=== PATIENT | female | born 1990 | race Caucasian/White ===

== ENCOUNTER 2017-04-29 13:32 | Emergency (ER) | payer MEDICAID ==
[~2017-04-29] VITALS: Ht 162.6 cm; Wt 34.0 kg
[~2017-04-29 13:32] MED LIST: CIPRO 500MG TA500 MG PO; DARVOCET-N 1001 EACH PO; FLAGYL 500MG.500 MG PO; IBUPROFEN400 MG PO; LOMOTIL 2.5MG.2.5 MG PO; NOMEDS; SUBOXONE 8 MG-21 FIL SL; ZOFRAN ODT4 MG PO; ZOFRAN4 MG PO
--- OUTSIDE RECORDS SUMMARY | 2017-04-29 14:01 | External Medical Summary Rpt ---
Author Author , ELIZABETH Rust ELIZABETH Address Unknown Phone [email or web address] Care Team Providers Care Clinical Documentation Spec Name Role Phone A Gen MUNOZ MD PSC, A Unavailable Unavailable Gen MUNOZ MD PSC Kanu Singh MD, Unavailable Unavailable Kanu Singh MD SIAACS, ISAACS Unavailable Unavailable CASE JUS, CASE JUS Unavailable Unavailable WADSWORTH, WADSWORTH Unavailable Unavailable [facility]AD[facility]TH ROSELINE, WADSWORTH Unavailable Unavailable ROSELINE WADSW[facility]TH ROSELINE, WADSWOTRH Unavailable Unavailable [facility] Unavailable Unavailable [place], [facility] Unavailable Unavailable [facility] [place] [place] [place] JR NORRIS Unavailable Unavailable DENAE DALAL Unavailable Unavailable [facility] Unavailable Unavailable [facility] HARPEL ROBINA, HARPEL Unavailable Unavailable [facility] Unavailable Unavailable [facility] Unavailable Unavailable INC, [facility], Unavailable Unavailable [facility] Un[facility] Unavailable [facility] KILPELA, KILPELA Unavailable Unavailable [facility] Unavailable Unavailable [facility], [facility] Unavailable Unavailable [facility], [facility] Unavailable [facility]available [facility] SYED DELATORRE, Unavailable Unavailable RENETTA MENON Unavailable Unavailable [facility] Unavailable Unavailable LAB, [facility] CAROL MEDINA Unavailable Unavailable CISCO STEWART, CISCO Unavailable Unavailable [facility] Unavailable Unavailable OF [place], [facility] [place] Purpose Continuity of Care Document - 11-24-2011 through 2016 Problems Code Diagnosis DOS Provider Status I731 THROMBOANGI 03-30-2017 [facility] ITIS PHYSICIANS OBLITERANS GROUP I998 OTHER 03-30-2017 [facility] DISORDER OF PHYSICIANS GROUP CIRCULATORY SYSTEM N028 RECUR & 03-30-2017 [facility] PERSIST PHYSICIANS HEMATURIA GROUP OTH MORPHOLOG CHANGES Z720 TOBACCO USE 03-30-2017 [facility] PHYSIC[facility]ANS GROUP Z3009 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 03-29-2017 [facility] 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 I739 PERIPHERAL 03-05-2017 [place] [facility] UNSPECIFIED R230 CYANOSIS 03-05-2017 [facility] I493 VENTRICULAR 03-02-2017 [facility] PREMATURE PHYSICIANS DEPOLARIZAT GROUP ION I749 EMBOLISM 03-02-2017 [facility] AND PHYS[facility]IANS THROMBOSIS GROUP OF UNSPECIFIED ARTERY R509 FEVER 02-15-2017 [facility] UNSPECIFIED [facility] INC I779 DISORDER OF 02-03-2017 [facility] ARTERIES [facility] AND INC ARTERIOLES UNSPECIFIED Z08703 PAIN IN 01-25-2017 [place] RIGHT [facility] D59347 PAIN IN 01-25-2017 [place] [facility] W26516 PAIN IN 01-25-2017 [place] [facility] Z681 BODY MASS 01-18-2017 A Gen MUNOZ INDEX BMI PSC 19 OR LESS ADULT U02240 PAIN IN 12-15-2016 [place] RIGHT WRIST [facility]ICAL IM[facility]ING ASS T66442 PAIN IN 12-15-2016 [place] [facility] R110 NAUSEA 12-14-2016 A Gen MUNOZ MD PSC Q69573 UNSPECIFIED 06-23-2016 Carmen MUNOZ MD PSC EPISCLERITI S RIGHT EYE R1011 RIGHT UPPER 06-23-2016 [facility] PAIN HOLDINGS R112 NAUSEA WITH 06-23-2016 [facility] UNSPECIFIED HOLDINGS H6592 UNSPECIFIED 06-01-2016 A Gen MUNOZ MD PSC NONSUPPURAT RONNIE OTITIS MEDIA LT EAR J069 ACUTE UPPER 06-01-2016 A Gen MUNOZ MD PSC RESPIRATORY INFECTION UNSPECIFIED J209 ACUTE 06-01-2016 A Gen MUNOZ BRONCHITIS PSC UNSPECIFIED B1920 UNS VIRAL 09-23-2015 A Gen MUNOZ HEPATITIS C PSC WITHOUT HEPATIC COMA E860 DEHYDRATION 09-23-2015 [facility] INC K5900 CONSTIPATIO 09-23-2015 [facility] N [facility] UNSPECIFIED INC R1110 VOMITING 09-23-2015 [facility] UNSPECIFIED [facility] INC R17 UNSPECIFIED 09-23-2015 A Gen MUNOZ JAUNDICE PSC Z3049 ENCOUNTER 08-20-2015 [facility] FOR [facility] SURVEILLANC GROUP E OTHER CONTRACEPTI VES Z308 ENCOUNTER 08-20-2015 [facility] FOR OTHER PHYSICIANS CONTRACEPTI GROUP VE MANAGEMENT R768 OTH SPEC 08-02-2015 GASTROENTER ABNORMAL OLOGY AND IMMUNOLOGIC HEPATOL AL FIND IN SERUM 305.1 305.1 08-24-[address] [facility] 787.91 787.91 08-24-2013 [facility] DI[facility] V255 INSERTION 09-07-2012 [facility] ROSELINE OF IMPLANTABLE SUBDERMAL CONTRACEPTI VE 650 NORMAL 08-08-2012 [facility] DELIVERY ANESTH OF THE BLUE 38899 OTH&UNS CRD 08-08-2012 [facility] ENTANGL [facility] W/O COMPRS INC COMP L&D DELIV 65395 FIRST-DEGRE 08-08-2012 [facility] E PERINEAL [facility] LACERATION INC WITH DELIVERY V270 OUTCOME OF 08-08-2012 [facility] DELIVERY [facility] SINGLE INC LIVEBORN 65034 THREATENED 08-07-2012 [facility] PREMATURE [facility] LABOR INC ANTEPARTUM 50816 OTHER 08-07-2012 HARPEL ROBINA THREATENED LABOR, ANTEPARTUM 24973 CONDYLOMA 08-02-2012 [facility] ACUMINATUM [facility] INC 95998 POOR 08-02-2012 [facility] GROWTH MGMT MOTH ANTPRTM COND/COMP V222 08-02-2012 [facility] STATE, [facility] INCIDENTAL INC V220 SUPERVISION 07-26-2012 ANA[facility] ROSELINE OF NORMAL FIRST 97798 ABN MAT 05-13-2012 [facility] ROSE[facility] GLUCOSE TOLERANCE COMPL PG CB/PP UNS EOC 7910 PROTEINURIA 05-10-2012 [place] ROSELINE V283 ENCOUNTER 03-31-2012 ANANTH DUKES ROUTINE SCREEN MALFORMATIO N ULTRASONIC 29121 EDEMA OR 01-13-2012 [facility] EXCESSIVE [facility] WEIGHT GAIN INC ANTEPARTUM 71926 OTHER 12-31-2011 [facility] N [place] ANTEPARTUM V221 SUPERVISION 12-23-2011 PATHOLOGY & OF OTHER CYTOLOGY NORMAL LAB V7242 12-23-2011 [facility] EXAMINATION [facility] OR TEST CLINIC OF POSITIVE [place] RESULT V745 SCREENING 12-23-2011 PATHOLOGY & EXAMINATION CYTOLOGY FOR LAB VENEREAL DISEASE I77.1 STRICTURE OF ARTERY Allergies, Adverse Reactions, Alerts Type Drug Allergy Adverse Reaction to Substance Substance Reaction Severity No Known Drug Unknown Unknown Allergies Medications Na ND Rx Da Fi Fi Am Da Di Ph RX Ph St me C No te ll ll ou ys ag ar # ys at rm s nt no ma ic us Or Da si cy ia de te s n re d XA 50 05 06 30 30 00 RI Ac RE 45 -3 -3 .0 00 TE ti LT 80 0- 0- 00 01 ve O 57 20 20 18 AI 20 93 17 17 59 D 0 27 PH MG AR MA TA CY BL ET #3 93 8 HY 13 06 06 90 [address] 10 -0 -3 .0 00 IN ti OC 70 6- 0- 00 00 IC ve OD 01 20 20 43 ON 90 17 17 32 PH -A 5 35 AR CE MA TA CY VA NO PH EN 5- 32 5 AT 60 05 06 30 30 00 RI Ac OR 50 -3 -2 .0 00 TE ti VA 52 0- 3- [address] 67 20 20 18 AI AT 10 17 17 59 D IN 9 28 PH AR 80 MA CY MG #3 TA 93 BL 8 ET CH 00 05 06 53 28 00 RI Ac AN 06 -2 -1 .0 00 TE ti TI 90 3- 6- 00 01 ve X 47 [address] 10 17 17 50 D AR 3 36 PH TI AR NG MA CY MO NT #3 H 93 MAYTE 8 X CL 60 05 06 30 30 00 RI Ac OP 50 -0 -0 .0 00 TE ti ID 50 5- 2- 00 01 ve OG 25 20 20 18 AI RE 30 17 17 27 D L 2 86 PH 75 AR MA MG CY TA #3 BL 93 ET 8 ON 55 04 05 15 25 00 RI Ac DA 11 -1 -0 .0 00 TE ti NS 10 0- 5- 00 01 ve ET 15 20 20 17 AI RO 33 17 17 91 D N 0 09 PH HC AR L MA 4 CY MG #3 TA 93 BL 8 ET SO 00 11 0 No DI 40 -1 UM 97 9- Lo 98 20 ng CH 30 13 er LO 9 RI Ac DE ti ve 0. 9% SO GAGE TI ON Sa 63 11 0 No li 80 -1 ne 70 9- Lo 10 20 ng Fl 07 13 er us 5 h Ac 10 ti ML ve Sy ri ng e ON 00 11 0 No DA 64 -1 NS 16 9- Lo ET 08 20 ng RO 02 13 er N 5 HC Ac L ti 4 ve MG /2 ML AL TN 00 11 0 No OM 64 -1 ET 11 9- Lo LINO 49 20 ng ZI 53 13 er NE 5 Ac 25 ti ve MG /M L AM PU L Vital Signs 08-24-2013 15:55 Name Value Interpretat Reference Comment ion Range Body 98.5 [degF] Temperature BP 64 mm[Hg] Diastolic BP Systolic 101 mm[Hg] Heart 78 /min Rate/Pulse O2% 100 % Respiratory 16 /min Rate 08-22-2013 14:40 Name Value Interpretat Reference Comment ion Range BP 45 mm[Hg] Diastolic BP Systolic 98 mm[Hg] Heart 74 /min Rate/Pulse O2% 99 % Respiratory 18 /min Rate 08-22-2013 13:12 Name Value Interpretat Reference Comment ion Range BP 57 mm[Hg] Diastolic BP Systolic 86 mm[Hg] Heart 77 /min Rate/Pulse O2% 99 % Respiratory 20 /min Rate Results Labs Lab Lab Date Result Refere Interp Status Commen Order Detail nces retati t Range on Bacteria XXX Anaerobe+Aerobe Cult (04-20-2017 10:06) Bacteri 04-20- NGB3 NO complet a XXX 017 GROWTH ed Anaerob 10:06 DAY 3. e+Aerob L e Cult ESR Bld Qn (04-20-2017 10:06) ESR Bld 04-20-2 17 0-20 complet Qn 017 mm/hr ed 10:06 CRP SerPl-mCnc (04-20-2017 10:06) CRP 04-20-2 0.7 0-0.9 complet SerPl-m 017 mg/dL ed Cnc 10:06 COMPREHENSIVE METABOLIC PANEL (08-22-2013 13:35) Glucose 76 74-106 complet 013 mg/dL ed Bld-mCn 13:35 c BUN 13 7-18 complet Bld-mCn 013 mg/dL ed c 13:35 Creat 08-22- 0.7 0.6-1.0 complet SerPl-m 013 mg/dL ed Cnc 13:35 ESTIMAT 08-22- 89 50-200 complet ED 013 ML/MIN ed CREATIN 13:35 INE CLEARAN CE GFR 08-22- 104 59- complet (ESTIMA 013 ML/MIN ed OUMAR) 13:35 Sodium 08-22- 141 136-145 complet SerPl-s 013 mmoL/L ed Cnc 13:35 Potassi 4.0 3.5-5.1 complet um 013 mmoL/L ed SerPl-s 13:35 Cnc Chlorid 08-22- 108 98-107 complet e 013 mmoL/L ed SerPl-s 13:35 Cnc CO2 08-22- 25 21.0-32 complet SerPl-s 013 mmoL/L .0 ed Cnc 13:35 Calcium 08-22- 7.6 8.5-10. complet 013 mg/dL 1 ed SerPl-m 13:35 Cnc Prot 08-22-2 5.6 6.4-8.2 complet SerPl-m 013 gm/dL ed Cnc 13:35 Albumin 08-22-2 2.8 3.4-5.0 complet 013 gm/dL ed SerPl-m 13:35 Cnc Globuli 08-22- 2.8 1.3-3.2 complet n 013 gm/dL ed Ser-mCn 13:35 c Albumin 1.0 UNK 1.1-1.8 complet /Glob 013 ed SerPl-m 13:35 Rto Bilirub 08-22- 0.2 0.2-1.0 complet 013 mg/dL ed SerPl-m 13:35 Cnc AST 08-22- 28 U/L 15-37 complet SerPl-c 013 ed Cnc 13:35 ALT 08-22- 33 U/L 30-65 complet SerPl-c 013 ed Cnc 13:35 ALP 08-22- 77 U/L 50-136 complet SerPl-c 013 ed Cnc 13:35 Amylase SerPl-cCnc (08-22-2013 13:35) Amylase 08-22-2 33 U/L 25-115 complet 013 ed SerPl-c 13:35 Cnc LIPASE (08-22-2013 13:35) LIPASE 08-22- 91 U/L 73-393 complet 013 ed 13:35 CBC with AUTO DIFF (08-22-2013 13:35) WBC # 08-22-2 6.4 4.8-10. complet Bld 013 K/MM3 8 ed Auto 13:35 RBC # 08-22-2 4.39 4.2-5.4 complet Bld 013 M/mm3 ed Auto 13:35 Hgb 08-22- 13.3 12.2-16 complet Bld-mCn 013 g/dL .2 ed c 13:35 Hct Fr 08-22-2 39.3 % 37.0-47 complet Bld 013 .0 ed 13:35 MCV RBC 08-22-2 89.5 fl 82.2-97 complet 013 .8 ed 13:35 MCH RBC 08-22-2 30.3 pg 27-31.2 complet Qn 013 ed Auto 13:35 MEAN 08-22-2 33.9 31.8-35 complet CORPUSC 013 g/dl .4 ed ULAR 13:35 HGB CONC RDW RBC 08-22-2 14.3 % 11.5-17 complet Auto 013 .5 ed 13:35 Platele 08-22-2 179 142-424 complet t Bld 013 K/mm3 ed Ql 13:35 Manual MEAN 08-22-2 8.5 fl 7.4-10. complet PLATELE 013 4 ed T 13:35 VOLUME Granulo 08-22-2 65.2 % 37.0-80 complet cytes 013 .0 ed Fr Bld 13:35 Auto LYMPH % -19-2 23.6 % 10-50.0 complet 013 ed 13:35 Monocyt -19-2 6.7 % 1.7-9.3 complet es Fr 013 ed Bld 13:35 Auto Eosinop 11-19-2 4.0 % 0.1-12. complet hil Fr 013 0 ed Bld 13:35 Auto Basophi 11-19-2 0.5 % 0.1-2.0 complet ls Fr 013 ed Bld 13:35 Auto Granulo 11-19-2 4.2 1.8-7.8 complet cytes # 013 K/mm3 ed Bld 13:35 Auto Lymphoc 11-19-2 1.5 0.7-4.5 complet ytes Fr 013 K/mm3 ed Bld 13:35 Auto Monocyt 11-19-2 0.4 0.1-1.0 complet es # 013 K/mm3 ed Bld 13:35 Auto Eosinop 11-19-2 0.3 0.0-0.4 complet hil # 013 K/mm3 ed Bld 13:35 Auto Basophi 11-19-2 0.0 0-0.2 complet ls # 013 K/MM3 ed Bld 13:35 Auto B-HCG Ur Ql (08-22-2013 12:45) B-HCG -19-2 NEGATIV NEG complet Ur Ql 013 E ed 12:45 URINALYSIS/COMPLETE (08-22-2013 12:45) URINE 11-19-2 YELLOW YELLOW complet COLOR 013 ed 12:45 URINE 11-19-2 CLEAR CLEAR complet APPEARA 013 ed NCE 12:45 URINE 11-19-2 NEGATIV NEG complet GLUCOSE 013 E ed - 12:45 DIPSTIC K URINE 11-19-2 1+ NEG complet BILIRUB 013 ed IN - 12:45 DIPSTIC K URINE 11-19-2 1+ NEG complet KETONE 013 mg/dL ed 12:45 URINE 11-19-2 1.020 1.005-1 complet SPECIFI 013 UNK .030 ed C 12:45 GRAVITY URINE 11-19-2 NEGATIV NEG complet BLOOD 013 E ed 12:45 URINE 11-19-2 6.0 UNK 5.0-8.5 complet PH 013 ed 12:45 URINE 11-19-2 TRACE NEG complet PROTEIN 013 mg/dL ed - 12:45 DIPSTIC K URINE 11-19-2 0.2 NEG complet UROBILI 013 E.U./dL ed NOGEN - 12:45 DIPSTIC K URINE 11-19-2 NEGATIV NEG complet NITRATE 013 E ed - 12:45 DIPSTIC K URINE 11-19-2 NEGATIV NEG complet LEUK 013 E ed ESTERAS 12:45 E URINE 11-19-2 3-5 0 complet RBC 013 rbc/hpf ed 12:45 URINE 11-19-2 3-5 O complet WBC 013 wbc/hpf ed 12:45 URINE 11-19-2 5-10 0-5 complet SQUAMOU 013 #/hpf ed S CELLS 12:45 CHLAMYDIA AND GONORRHEA TESTING (11-24-2011 16:14) Chlamyd NEGATIV complet ia 012 E ed trachom 16:14 atis rRNA [Presen ce] in Unspeci fied specime n by Probe & target amplifi cation method Neisser NEGATIV complet ia 012 E ed gonorrh 16:14 oeae rRNA [Presen ce] in Unspeci fied specime n by Probe & target amplifi cation method CHLAMYDIA AND GONORRHEA TESTING (11-24-2011 16:14) COLLECT NA complet OR 012 ed 16:14 ETHNICI WHITE, complet TY 012 NON-HIS ed 16:14 PANIC KIT 02-01-12 complet EXPIRAT 012 ed ION 16:14 DATE SYMPTOM NO complet S 012 ed 16:14 REASON INITIAL complet FOR 012 FAMILY ed REQUEST 16:14 PLANNIN G VISIT SPECIME URINE complet N 012 ed SOURCE 16:14 PREGNAN NO complet T 012 ed 16:14 CHART NA complet NUMBER 012 ed 16:14 Chlamyd Pending complet ia 012 ed trachom 16:14 atis rRNA [Presen ce] in Unspeci fied specime n by Probe & target amplifi cation method Neisser Pending complet ia 012 ed gonorrh 16:14 oeae rRNA [Presen ce] in Unspeci fied specime n by Probe & target amplifi cation method Procedures Procedure DOS Code Location Performer Comment ECG 93826 [facility] ROUTINE 7 PHYSICIAN ECG S GROUP W/LEAST 12 LDS I&R ONLY ECG 19161 [facility] ROUTINE 7 PHYSICIAN ECG S GROUP W/LEAST 12 LDS I&R ONLY ECG 69437 [facility] ROUTINE 7 [facility] ECG INC INC W/LEAST 12 LDS TRCG ONLY W/O I&R UNCLASSIF J3490 [facility] IED DRUGS 7 [facility] INC INC CT THORAX 90447 [place] [facility] 7 MEDICAL W/[place] [address] [facility] ANGIOGRAP 7 [facility] HY CHEST INC INC W/CONTRAS T/NONCONT RAST ECG 89427 [facility] ROUTINE 7 [facility] ECG INC INC W/LEAST 12 LDS TRCG ONLY W/O I&R ECG 80491 [facility] ROUTINE 7 PHYSICIAN ECG S GROUP W/LEAST 12 LDS I&R ONLY CULTURE 75966 [facility] BACTERIAL 7 [facility] BLOOD INC INC AEROBIC W/ID ISOLATES UNCLASSIF J3490 [facility] IED DRUGS 7 [facility] [place] [address] [facility] ANGIOGRAP 7 [facility] HY UPPER INC INC EXTREMITY COMPREHEN 42564 [facility] SIVE 7 [facility] METABOLIC INC INC PANEL PROTHROMB 08778 [facility] IN TIME 7 [facility] INC INC DUP-SCAN 20460 [facility] XTR VEINS 7 [facility] INC INC UNILATERA L/LIMITED STUDY NON-INVAS 91297 [facility] RONNIE 7 [facility] PHYSIOLOG INC INC IC STUDY EXTREMITY 3 LEVLS C-REACTIV 33349 [facility] E PROTEIN 7 [place], INC. INC. COLLECTIO 12482 A C RENETTA N VENOUS 7 ALEXANDER TOLBERT BLOOD PSC VENIPUNCT URE SEDIMENTA 43039 [facility] TION RATE 7 [place], RBC INC. INC. AUTOMATED ANTINUCLE 72697 [facility] AR 7 [place], ANTIBODIE INC. INC. S JAMARI RADEX 51768 [facility] HAND 7 [facility] MINIMUM 3 INC INC VIEWS RADEX 28669 [facility] WRIST 7 [facility] COMPLETE INC INC MINIMUM 3 VIEWS HPYLORI 58461 [facility] BREATH 6 [facility] ANAL HOLDINGS HOLDINGS UREASE ACT NON-RADAC T ISTOPE URINLS 57768 A C DENAE DIP 5 ALEXANDER HARO STICK/TAB PSC LET REAGNT NON-AUTO MICRSCPY INJECTION J2405 [facility] 5 [facility] ONDANSETR INC INC ON HCL PER 1 MG COMPREHEN 57917 [facility] SIVE 5 [facility] [place] [address] [facility] LIPASE 5 [facility] INC INC BLOOD 11595 A C DENAE COUNT 5 ALEXANDER HARO COMPLETE PSC AUTO&[place] [address] Y[facility]ELY Y[facility]ELY INFUSION 5 [facility] THERAPY/P INC INC ROPHYLAXI S /DX 1ST TO 1 HR THERAPEUT 89969 [facility] IC 5 [facility] INJECTION INC INC IV PUSH EACH NEW DRUG INSJ 44559 [facility] ANANTH NON-BIODE 5 PHYSICIAN ROSELINE GRADABLE S GROUP DRUG DELIVERY IMPLANT INSJ 28093 [facility] [place] NON-BIODE 2 ROSELINE ROSELINE GRADABLE DRUG DELIVERY IMPLANT ETONOGEST J7307 [facility] [place] REL 2 ROSELINE ROSELINE CNTRACPT IMPL SYS INCL IMPL & SPL URINE 95682 [facility] [place] 2 ROSELINE ROSELINE TEST VISUAL COLOR CMPRSN METHS REPAIR OF 7569 [facility] OTHER 2 [facility] CURRENT INC INC OBSTETRIC LACERATIO N VAGINAL 25056 ANANTH [place] DELIVERY 2 ROSELINE ROSELINE ONLY W/POSTPAR [facility]ERINE CARE NEURAXIAL 15053 [facility] LABOR 2 ANESTH TERRY ANALG/ANE OF THE S PLND BLUE VAGINAL DELIVERY 09766 [facility] NONSTRESS 2 [facility] TEST INC INC 20633 [facility] NONSTRESS 2 [facility] TEST INC INC DOPPLER 08827 [place] VELOCIMET 2 ROSELINE ROSELINE RY UMBILICAL ARTERY US PREG 35483 [place] UTERUS 2 ROSELINE ROSELINE REAL TIME F/U TRNSABDL PER FETUS 49142 [place] BIOPHYSIC 2 ROSELINE ROSELINE AL PROFILE W/O NON-STRES S TESTING CUL BACT 88924 COMBINED COMBINED XCPT 2 PHYSICIAN PHYSICIAN URINE S LA S LA BLOOD/STO OL AEROBIC ISOL US PREG 06274 [place] UTERUS 2 ROSELINE ROSELINE REAL TIME F/U TRNSABDL PER FETUS DOPPLER 01815 [place] VELOCIMET 2 ROSELINE ROSELINE RY UMBILICAL ARTERY 27883 [place] BIOPHYSIC 2 ROSELINE ROSELINE AL PROFILE W/O NON-STRES S TESTING 56702 [place] BIOPHYSIC 2 ROSELINE ROSELINE AL PROFILE W/O NON-STRES S TESTING DOPPLER 39937 [place] VELOCIMET 2 ROSELINE ROSELINE RY UMBILICAL ARTERY US PREG 83286 [facility] [place] UTERUS 2 ROSELINE ROSELINE REAL TIME F/U TRNSABDL PER FETUS GLUCOSE 41463 [facility] [place] TOLERANCE 2 ROSELINE ROSELINE TEST GTT 3 [place]IMENS US PREG 68078 [facility] [place] UTERUS 2 ROSELINE ROSELINE AFTER 1ST TRIMEST GESTATION ALPHA-FET 86216 YARELYGINNY [facility] OPROTEIN 2 [facility] INC INC GONADOTRO 76030 YARELY YARELY PIN 2 [facility] CHORIONIC [place] [address] YARELY YARELY ESTRIOL 2 [facility] INC INC MEDICAL 15010 [facility] NUTRITION 2 [facility] INC INC ASSMT&IVN TJ INDIV EACH 15 [place] US PREG 53736 [facility] UTERUS 2 HEALTH ROSELINE REAL TIME CLINIC OF W/IMAGE [place] DCMTN TRANSVAG IADNA 30980 PATHOLOGY SYED CHLAMYDIA 2 & NANDINI CYTOLOGY TRACHOMAT LAB IS AMPLIFIED PROBE TQ CYTP 83018 PATHOLOGY SYED CERVICAL/ 2 & NANDINI VAGINAL CYTOLOGY REQ LAB INTERP PHYSICIAN CYTP C/V 86403 PATHOLOGY SYED AUTO THIN 2 & NANDINI LYR CYTOLOGY PREPJ SCR LAB MNL RESCR PHYS IADNA 41329 PATHOLOGY SYED NEISSERIA 2 & NANDINI CYTOLOGY GONORRHOE LAB AE AMPLIFIED PROBE TQ URINE 53152 [facility] 2 [facility] CENTER VISUAL COLOR CMPRSN METHS Encounters Encounter Start End Date Code Location Performer Type Date OFFICE 14467 [facility] CAROL OUTPATIEN 7 7 PHYSICIAN T VISIT S GROUP 25 MINUTES OFFICE 08487 [facility] [place] OUTPATIEN 7 7 PHYSICIAN T VISIT S GROUP 15 MINUTES HOSPITAL YARELY - 7 7 [facility] OFFICE 52838 [facility] CAROL OUTPATIEN 7 7 PHYSICIAN T VISIT S GROUP 40 MINUTES HOSPITAL YARELY - 7 7 [facility] HOSPITAL YARELY - 7 7 [facility] OUTPATIEN INC T OFFICE 68794 [facility] CAROL OUTPATIEN 7 7 PHYSICIAN T NEW 60 S GROUP MINUTES HOSPITAL YARELY - 7 7 [facility] OUTPATIEN INC T HOSPITAL YARELY - 7 7 [facility] OUTPATIEN INC T EMERGENCY 31280 ADDI NORRIS 7 7 PHYSICIAN DEPARTMEN S, PLLC T VISIT HIGH/URGE NT SEVERITY HOSPITAL YARELY - 7 7 [facility] OUTPATIEN INC T EMERGENCY 61466 YARELY 7 7 [facility] T VISIT LOW/MODER SEVERITY HOSPITAL YARELY - 7 7 [facility] OUTPATIEN INC T OFFICE 91297 A C [place] OUTPATIEN 7 7 [facility] [place] T VISIT PSC 15 MINUTES HOSPITAL YARELY - 7 7 [facility] OUTPATIEN [facility] T OFFICE 67499 A C OMAR OUTPATINICHELLE 7 7 [facility] [place] T VISIT PSC 15 MINUTES OFFICE 62881 A C DENAE OUTPATIEN 6 6 ALEX[facility] HARO T VISIT PSC 15 MINUTES OFFICE 29609 A C DENAE OUTPATIEN 6 6 A[facility] HARO T VISIT PSC 15 MINUTES HOSPITAL YARELY - 5 5 [facility] OUTPATIEN INC T EMERGENCY 72046 YARELY 5 5 [facility] DEPARTMEN INC T VISIT LOW/MODER SEVERITY OFFICE 79583 A Gen PHILIPPE OUTPATIEN 5 5 ALEXANDER HARO T VISIT PSC 15 MINUTES OFFICE 50688 GASTROENT CASE JUS OUTPATINICHELLE 5 5 EROLOGY T VISIT AND 25 HEPATOL MINUTES Emergency RICK Singh MD (ER) 3 15:34 3 16:00 [facility] Emergency RICK Singh MD (ER) 3 13:02 3 14:42 [facility] YARELY - 2 2 [facility] INPATIENT [facility] Y[facility]ELY - 2 2 [facility] OUT[facility]IEN [facility] YARELY - 2 2 [facility] INC T OFFICE 85467 [facility] 2 2 ROSELINE ROSELINE T VISIT 15 MINUTES OFFICE 72338 [facility] OUTPATIEN 2 2 ROSELINE ROSELINE T VISIT 15 MINUTES OFFICE 05157 [facility] OUTPATIEN 2 2 ROSELINE ROSELINE T VISIT 15 MINUTES OFFICE 27526 [facility] OUTPATIEN 2 2 ROSELINE ROSELINE T VISIT 15 MINUTES OFFICE 08927 [facility] OUTPATIEN 2 2 ROSELINE ROSELINE T VISIT 5 MINUTES OFFICE 30228 [facility] OUTPATIEN 2 2 ROSELINE ROSELINE T VISIT 15 MINUTES OFFICE 11246 [facility] OUTPATIEN 2 2 ROSELINE ROSELINE T VISIT 15 MINUTES HOSPITAL YARELY - 2 2 [facility] OUTPATIEN [facility] T OFFICE 96035 [facility] OUTPATIEN 2 2 ROSELINE ROSELINE T VISIT 15 MINUTES OFFICE 75668 [facility] OUTPATIEN 2 2 ROSELINE ROSELINE T VISIT 15 MINUTES OFFICE 80600 [facility] OUTPATIEN 2 2 ROSELINE ROSELINE T VISIT 15 MINUTES HOSPITAL [facility]ELY - 2 2 [facility] INC T OFFICE 24249 [facility] 2 2 [facility] T [facility] CLIN[facility] OF MINUTES [facility] OFFICE 56660 [facility] [place] OUT[facility]IEN 2 2 [facility] CENTER 15 MINUTES
--- OUTSIDE RECORDS SUMMARY | 2017-04-29 14:01 | External Medical Summary Rpt ---
Author Author , ELIZABETH Rust ELIZABETH Address Unknown Phone [email or web address] Care Team Providers Care Ventilation Worker Name Role Phone A Gen MUNOZ MD PSC, A Unavailable Unavailable Gen MUNOZ MD PSC Kanu Singh MD, Unavailable Unavailable Kanu Singh MD ISAACS, ISAACS Unavailable Unavailable CASE JUS, CASE JUS Unavailable Unavailable WADSWORTH, WADSWORTH Unavailable Unavailable [facility] ROSELINE, WADSWORTH Unavailable Unavailable ROSELINE [facility]AD[facility]TH ROSELINE, WADSWORTH Unavailable Unavailable [facility] Un[facility] Unavailable [place], [facility] Unavailable Unavailable [facility] JR NORRIS Unavailable Unavailable DENAE DALAL Unavailable Unavailable [facility] Unavailable Unavailable [facility] HARPEL ROBINA, HARPEL Unavailable Unavailable [facility] Unavailable Unavailable [facility] Unavailable Unavailable INC, [facility], Unavailable Unavailable [facility] Unavailable Unavailable [facility], [facility] KILPELA, KILPELA Unavailable Unavailable [facility] Unavailable Unavailable [facility], [facility] Unavailable Unavailable [facility], [facility] Unavailable Unavailable [facility], Unavailable Unavailable RENETTA MENON Unavailable Unavailable [facility] Unavailable Unavailable LAB[facility] CAROL MEDINA Unavailable Unavailable CISCO STEWART, CISCO Unavailable Unavailable [facility] Unavailable Unavailable OF [place], [facility] [place] Purpose Continuity of Care Document - 11-24-2011 through 2016 Problems Code Diagnosis DOS Provider Status I731 THROMBOANGI 03-30-2017 [facility] ITIS PHYSICIANS OBLITERANS GROUP I998 OTHER 03-30-2017 [facility] DISORDER OF PHYSICIANS GROUP CIRCULATORY SYSTEM N028 RECUR & 03-30-2017 [facility] PERSIST PHYSICIANS HEMATURIA GROUP OTH MORPHOLOG CHANGES Z720 TOBACCO USE 03-30-2017 [facility] PHYSICIANS GROUP Z3009 ENCOUNTER 03-29-2017 [facility] OT GENERAL 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 I739 PERIPHERAL 03-05-2017 [place] [facility] UNSPECIFIED R230 CYANOSIS 03-05-2017 [facility] I493 VENTRICULAR 03-02-2017 [facility] PREMATURE PHYSICIANS DEPOLARIZAT GROUP ION I749 EMBOLISM 03-02-2017 [facility] AND PHYSICIANS THROMBOSIS GROUP OF UNSPECIFIED ARTERY R509 FEVER 02-15-2017 [facility] UNSPECIFIED [facility] INC I779 DISORDER OF 02-03-2017 [facility] ARTERIES [facility] AND INC ARTERIOLES UNSPECIFIED G25526 PAIN IN 01-25-2017 [place] [facility] E66710 PAIN IN 01-25-2017 [place] [facility] Z23896 PAIN IN 01-25-2017 [place] [facility] Z681 BODY MASS 01-18-2017 A Gen MUNOZ INDEX BMI PSC 19 OR LESS ADULT H88609 PAIN IN 12-15-2016 [place] [facility] W[facility]ST [facility] G97893 PAIN IN 12-15-2016 [place] [facility] R110 NAUSEA 12-14-2016 A Gen MUNOZ MD PSC V67813 UNSPECIFIED 06-23-2016 Carmen MUNOZ MD PSC EPISCLERITI [...] PSC WITHOUT HEPATIC COMA E860 DEHYDRATION 09-23-2015 [facility] INC K5900 CONSTIPATIO 09-23-2015 [facility] N [facility] UNSPECIFIED INC R1110 VOMITING 09-23-2015 [facility] UNSPECIFIED [facility] INC R17 UNSPECIFIED 09-23-2015 A Gen MUNOZ JAUNDICE PSC Z3049 ENCOUNTER 08-20-2015 [facility] FOR PHYSICIANS SURVEILLANC GROUP E OTHER CONTRACEPTI VES Z308 ENCOUNTER 08-20-2015 [facility] FOR OTHER PHYSICIANS CONTRACEPTI GROUP VE MANAGEMENT R768 OTH SPEC 08-02-2015 GASTROENTER ABNORMAL OLOGY AND IMMUNOLOGIC HEPATOL AL FIND IN SERUM 305.1 305.1 08-24-2013 [facility] TOBACCO USE [facility] 787.91 787.91 08-24-2013 [facility] DIARRHEA [facility] V255 INSERTION 09-07-2012 A[facility] ROSE[place] OF IMPLANTABLE SUBDERMAL CONTRACEPTI VE 650 NORMAL 08-08-2012 COMM[facility]ITY DELIVERY ANESTH OF THE BLUE 57195 OTH&UNS CRD 08-08-2012 [facility] ENTANGL [facility] W/O COMPRS INC COMP L&D DELIV 41860 FIRST-DEGRE 08-08-2012 [facility] E PERINEAL [facility] LACERATION INC WITH DELIVERY V270 OUTCOME OF 08-08-2012 [facility] DELIVERY [facility] SINGLE INC LIVEBORN 08310 THREATENED 08-07-2012 [facility] PREMATURE [facility] LABOR INC ANTEPARTUM 59082 OTHER 08-07-2012 HARPEL ROBINA THREATENED LABOR, ANTEPARTUM 86209 CONDYLOMA 08-02-2012 [facility] ACUMINATUM [facility] INC 58601 POOR 08-02-2012 ANA[facility]TH ROSELINE GROWTH MGMT MOTH ANTPRTM COND/COMP V222 08-02-2012 [facility] STATE, [facility] INCIDENTAL INC V220 SUPERVISION 07-26-2012 ANANTH ROSELINE OF NORMAL FIRST 63348 ABN MAT 05-13-2012 ANANTH ROSELINE GLUCOSE TOLERANCE COMPL PG CB/PP UNS EOC 7910 PROTEINURIA 05-10-2012 [facility] ROSELINE V283 ENCOUNTER 03-31-2012 ANANTH DUKES ROUTINE SCREEN MALFORMATIO N ULTRASONIC 47041 EDEMA OR 01-13-2012 [facility] EXCESSIVE [facility] WEIGHT GAIN INC ANTEPARTUM 17560 OTHER 12-31-2011 [facility] [...] 5 35 AR CE MA TA CY NC NO PH EN 5- 32 5 AT [...] ti 4 ve MG /2 ML AL VA 00 11 0 No OM 64 -1 [...] Procedure DOS Code Location Performer Comment ECG 43870 [facility] ROUTINE 7 PHYSICIAN ECG S GROUP W/LEAST 12 LDS I&R ONLY ECG 39782 [facility] ROUTINE 7 PHYSICIAN ECG S GROUP W/LEAST 12 LDS I&R ONLY ECG 21984 [facility] ROUTINE 7 [facility] ECG INC INC W/LEAST 12 LDS TRCG ONLY W/O I&R UNCLASSIF J3490 [facility] IED DRUGS 7 MEM [facility] INC [place] THORAX 00233 [place] [facility] 7 MEDICAL W/[place] [address] [facility] ANGIOGRAP 7 [facility] HY CHEST INC INC W/CONTRAS T/NONCONT RAST ECG 28073 [facility] ROUTINE 7 [facility] ECG INC INC W/LEAST 12 LDS TRCG ONLY W/O I&R ECG 29583 [facility] ROUTINE 7 PHYSICIAN ECG S GROUP W/LEAST 12 LDS I&R ONLY CULTURE 58426 [facility] BACTERIAL 7 [facility] BLOOD INC INC AEROBIC W/ID ISOLATES UNCLASSIF J3490 Y[facility] IED DRUGS 7 [facility] [address] YAERLY [facility] ANGIOGRAP 7 [facility] HY UPPER INC INC EXTREMITY COMPREHEN 84562 [facility] SIVE 7 [facility] METABOLIC INC INC PANEL PROTHROMB 59424 [facility] IN TIME 7 [facility] INC INC DUP-SCAN 14333 [facility] XTR VEINS 7 [facility] INC INC UNILATERA L/LIMITED STUDY NON-INVAS 34662 [facility] RONNIE 7 [facility] PHYSIOLOG INC INC IC STUDY EXTREMITY 3 LEVLS C-REACTIV 88841 [facility] PROTEIN 7 [place] INC. INC. COLLECTIO 82279 A C RENETTA N VENOUS 7 ALEXANDER TOLBERT BLOOD PSC VENIPUNCT URE SEDIMENTA 71179 [facility] TION RATE 7 [place], RBC INC. INC. AUTOMATED ANTINUCLE 36177 [facility] AR 7 [place], ANTIBODIE INC. INC. S JAMARI RADEX 84569 [facility] HAND 7 [facility] MINIMUM 3 INC INC VIEWS RADEX 73044 [facility] WRIST 7 [facility] COMPLETE INC INC MINIMUM 3 VIEWS HPYLORI 70674 LAB [facility] BREATH 6 [facility] ANAL HOLDINGS HOLDINGS UREASE ACT NON-RADAC T ISTOPE URINLS 47527 A C DENAE DIP 5 ALEXANDER HARO STICK/TAB PSC LET REAGNT NON-AUTO MICRSCPY INJECTION J2405 [facility] 5 [facility] ONDANSETR INC INC ON HCL PER 1 MG COMPREHEN 52929 [facility] SIVE 5 [facility] [place] [address] Y[facility] LIPASE 5 [facility] INC INC BLOOD 97246 A C DENAE COUNT 5 ALEXANDER HARO COMPLETE PSC AUTO&[place] [address] YARELY YARELY INFUSION 5 [facility] THERAPY/P INC INC ROPHYLAXI S /DX 1ST TO 1 HR THERAPEUT 86531 [facility] IC 5 [facility] INJECTION INC INC IV PUSH EACH NEW DRUG INSJ 17183 [facility] ANANTH NON-BIODE 5 PHYSICIAN ROSELINE GRADABLE S GROUP DRUG DELIVERY IMPLANT INSJ 22600 [facility] [place] NON-BIODE 2 ROSELINE ROSELINE GRADABLE DRUG DELIVERY IMPLANT ETONOGEST J7307 [facility] [place] REL 2 ROSELINE ROSELINE CNTRACPT IMPL SYS INCL IMPL & SPL URINE 67515 ANAN[facility] [place] 2 ROSELINE ROSELINE TEST VISUAL COLOR CMPRSN METHS REPAIR OF 7569 Y[facility] OTHER 2 [facility] CURRENT INC INC OBSTETRIC LACERATIO N VAGINAL 26291 ANANTH [place] DELIVERY 2 ROSELINE ROSELINE ONLY W/POSTPAR CATHERINE CARE NEURAXIAL 16710 [facility] LABOR 2 ANESTH TERRY ANALG/ANE OF THE S PLND BLUE VAGINAL DELIVERY 28566 [facility] NONSTRESS 2 [facility] TEST INC INC 55947 Y[facility] NONSTRESS 2 [facility] TEST INC INC DOPPLER 64899 [facility] VELOCIMET 2 ROSELINE ROSELINE RY UMBILICAL ARTERY US PREG 09538 [facility] UTERUS 2 ROSELINE ROSELINE REAL TIME F/U TRNSABDL PER FETUS 61097 [facility] BIOPHYSIC 2 ROSELINE ROSELINE AL PROFILE W/O NON-STRES S TESTING CUL BACT 10568 COMBINED COMBINED XCPT 2 PHYSICIAN PHYSICIAN URINE S LA S LA BLOOD/STO OL AEROBIC ISOL US PREG 51240 [facility] UTERUS 2 ROSELINE ROSELINE REAL TIME F/U TRNSABDL PER FETUS DOPPLER 53821 [facility] VELOCIMET 2 ROSELINE ROSELINE RY UMBILICAL ARTERY 13048 [facility] BIOPHYSIC 2 ROSELINE ROSELINE AL PROFILE W/O NON-STRES S TESTING 05198 [facility] BIOPHYSIC 2 ROSELINE ROSELINE AL PROFILE W/O NON-STRES S TESTING DOPPLER 97923 [facility] VELOCIMET 2 ROSELINE ROSELINE RY UMBILICAL ARTERY US PREG 46987 A[facility] [place] UTERUS 2 ROSELINE ROSELINE REAL TIME F/U TRNSABDL PER FETUS GLUCOSE 04468 ANA[facility]TH [place] TOLERANCE 2 ROSELINE ROSELINE TEST GTT 3 SPECIMENS US PREG 15919 ANANTH [place] UTERUS 2 ROSELINE ROSELINE AFTER 1ST TRIMEST GESTATION ALPHA-FET 40071 YARELYGINNY PRITCHETT OPROTEIN 2 [facility] SERUM INC INC GONADOTRO 11112 YARELY YARELY PIN 2 [facility] CHORIONIC [place] [address] YARELY YARELY ESTRIOL 2 [facility] INC INC MEDICAL 85892 YARELY [facility] NUTRITION 2 [facility] INC INC ASSMT&IVN TJ INDIV EACH 15 [place] PREG 82696 [facility] UTERUS 2 HEALTH ROSELINE REAL TIME CLINIC OF W/IMAGE [place] DCMTN TRANSVAG IADNA 59869 PATHOLOGY SYED CHLAMYDIA 2 & NANDINI CYTOLOGY TRACHOMAT LAB IS AMPLIFIED PROBE TQ CYTP 59125 PATHOLOGY SYED CERVICAL/ 2 & NANDINI VAGINAL CYTOLOGY REQ LAB INTERP PHYSICIAN CYTP C/V 69869 PATHOLOGY SYED AUTO THIN 2 & NANDINI LYR CYTOLOGY PREPJ SCR LAB MNL RESCR PHYS IADNA 36543 PATHOLOGY SYED NEISSERIA 2 & NANDINI CYTOLOGY GONORRHOE LAB AE AMPLIFIED PROBE TQ URINE 64893 YARELY PRITC[facility]TT 2 [facility] HEALTH TEST CENTER CENTER VISUAL COLOR CMPRSN METHS Encounters Encounter Start End Date Code Location Performer Type Date OFFICE 99979 [facility] CAROL OUTPATIEN 7 7 PHYSICIAN T VISIT S GROUP 25 MINUTES OFFICE 61460 [facility] OUTPATIEN 7 7 PHYSICIAN T VISIT S GROUP 15 MINUTES HOSPITAL YARELY - 7 7 [facility] OFFICE 41870 [facility] CAROL OUTPATIEN 7 7 PHYSICIAN T VISIT S GROUP 40 MINUTES HOSPITAL YARELY - 7 7 [facility] H[facility]PITAL YARELY - 7 7 [facility] OUTPATIEN INC T OFFICE 69816 [facility] CAROL OUTPATIEN 7 7 PHYSICIAN T NEW 60 S GROUP MINUTES HOSPITAL YARELY - 7 7 [facility] OUTPATIEN INC T HOSPITAL YARELY - 7 7 [facility] OUTPATIEN INC T EMERGENCY 78468 ADDI NORRIS 7 7 PHYSICIAN DEPARTMEN S, PLLC T VISIT HIGH/URGE NT SEVERITY HOSPITAL YARELY - 7 7 [facility] OUTPATIEN INC T EMERGENCY 40163 YARELY 7 7 [facility] T VISIT LOW/MODER SEVERITY HOSPITAL YARELY - 7 7 [facility] OUTPATIEN INC T OFFICE 08536 A C RENETTA OUTPATIEN 7 7 ALEXANDER TOLBERT T VISIT PSC 15 MINUTES HOSPITAL YARELY - 7 7 [facility] OUTPATIEN [facility] T OFFICE 26482 A C OMAR OUTPATINICHELLE 7 7 ALEXANDER TOLBERT T VISIT PSC 15 MINUTES OFFICE 63483 A C DENAE OUTPATIEN 6 6 ALEXANDER HARO T VISIT PSC 15 MINUTES OFFICE 74794 A C DENAE OUTPATIEN 6 6 ALEXANDER HARO T VISIT PSC 15 MINUTES HOSPITAL YARELY - 5 5 [facility] OUTPATIEN INC T EMERGENCY 56682 YARELY 5 5 [facility] DEPARTMEN INC T VISIT LOW/MODER SEVERITY OFFICE 90695 A Gen PHILIPPE OUTPATIEN 5 5 ALEXANDER HARO T VISIT PSC 15 MINUTES OFFICE 30201 GASTROENT CASE JUS OUTPATINICHELLE 5 5 EROLOGY T VISIT AND 25 HEPATOL MINUTES Emergency RICK Singh MD (ER) 3 15:34 3 16:00 [facility] Emergency RICK Singh MD (ER) 3 13:02 3 14:42 [facility] YARELY - 2 2 [facility] INPATIENT [facility] YARELY - 2 2 [facility] OUTPATIEN [facility] YARELY - 2 2 [facility] OUTPATIEN INC T OFFICE 33714 [facility] OUTPATIEN 2 2 ROSELINE ROSELINE T VISIT 15 MINUTES OFFICE 07913 [facility] OUTPATIEN 2 2 ROSELINE ROSELINE T VISIT 15 MINUTES OFFICE 29631 [facility] OUTPATIEN 2 2 ROSELINE ROSELINE T VISIT 15 MINUTES OFFICE 03384 [facility] OUTPATIEN 2 2 ROSELINE ROSELINE T VISIT 15 MINUTES OFFICE 26304 [facility] OUTPATIEN 2 2 ROSELINE ROSELINE T VISIT 5 MINUTES OFFICE 68438 [facility] OUTPATIEN 2 2 ROSELINE ROSELINE T VISIT 15 MINUTES OFFICE 14224 [facility] OUTPATIEN 2 2 ROSELINE ROSELINE T VISIT 15 MINUTES HOSPITAL YARELY - 2 2 [facility] OUTPATIEN [facility] T OFFICE 82106 [facility] OUTPATIEN 2 2 ROSELINE ROSELINE T VISIT 15 MINUTES OFFICE 46570 [facility] OUTPATIEN 2 2 ROSELINE ROSELINE T VISIT 15 MINUTES OFFICE 39064 [facility] OUTPATIEN 2 2 ROSELINE ROSELINE T VISIT 15 MINUTES HOSPITAL YARELY - 2 2 [facility] OUTPATIEN INC T OFFICE 92821 [facility] 2 2 HEALTH T NEW 45 CLINIC OF MINUTES [place] OFFICE 11766 YARELY PRITCHETT OUTPATIEN 2 2 [facility] HE[facility] T VISIT CENTER CENTER 15 MINUTES
--- OUTSIDE RECORDS SUMMARY | 2017-04-29 14:03 | External Medical Summary Rpt ---
Author Author , ELIZABETH Organization ELIZABETH Address Unknown Phone [email or web address] Care Team Providers Care Application Integration Specialist Name Role Phone A Gen MUNOZ MD PSC, A Unavailable Unavailable Gen MUNOZ MD PSC ISAACS, ISAACS Unavailable Unavailable CASE JUS, CASE JUS Unavailable Unavailable WADSWORTH, WADSWORTH Unavailable Unavailable WADSWORTH ROSELINE, WADSWORTH Unavailable Unavailable ROSELINE WADSWORTH ROSELINE, WADSWORTH Unavailable Unavailable ROSELINE [facility] Un[place]available [place], [facility] Unavailable Unavailable [facility] [place] [place] [facility] ABREU Unavailable Unavailable JR, JR Unavailable Unavailable PHILIPPE TAHIR, PHILIPPE Unavailable Unavailable [facility] Unavailable Unavailable [facility], [facility] HARPEL ROBINA, HARPEL Unavailable Unavailable ROBINA [facility] Unavailable Unavailable CENTER, [facility] Unavailable Unavailable INC, [facility], Unavailable [facility]available [facility] Unavailable Unavailable [facility], [facility] KILPELA, KILPELA Unavailable Unavailable [facility] Unavailable Unavailable [facility], [facility] Unavailable Unavailable [facility], [facility] [employer] Unavailable Unavailable [facility] [employer], Unavailable Unavailable RENETTA MENON Unavailable Unavailable [facility] Unavailable Unavailable LAB, [facility] CAROL MEDINA Unavailable Unavailable CISCO STEWART, CISCO Unavailable Unavailable TERRY [facility] Unavailable Unavailable OF [place], [facility] [place] Purpose Continuity of Care Document - 12-18-2011 through 2016 Problems Code Diagnosis DOS Provider Status I731 THROMBOANGI 03-30-2017 [facility] ITIS PHYSICIANS OBLITERANS GROUP I998 OTHER 03-30-2017 [facility] DISORDER OF PHYSICIANS GROUP CIRCULATORY SYSTEM N028 RECUR & 03-30-2017 [facility] PERSIST PHYSICIANS HEMATURIA GROUP OT MORPHOLOG CHANGES Z720 TOBACCO USE 03-30-2017 [facility]IC[facility]ANS GROUP Z3009 ENCOUNTER 03-29-2017 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 PREMATURE PHYSICIANS DEPOLARIZAT GROUP ION I749 EMBOLISM 03-02-2017 [facility] AND PHYSICIANS THROMBOSIS GROUP OF UNSPECIFIED ARTERY R509 FEVER 02-15-2017 [facility]PECIFIED [facility] INC I779 DISORDER OF 02-03-2017 [facility] ARTERIES [facility] AND INC ARTERIOLES UNSPECIFIED [id number] PAIN IN 01-25-2017 [facility] [id number] PAIN IN 01-25-2017 [facility] N08508 PAIN IN 01-25-2017 [facility] Z681 BODY MASS 01-18-2017 A Gen MUNOZ INDEX BMI [facility] 19 OR LESS ADULT N07998 PAIN IN 12-15-2016 [facility] WRIST [facility] N99736 PAIN IN 12-15-2016 [facility] R110 NAUSEA 12-14-2016 A Gen MUNOZ MD PSC [id number] UNSPECIFIED 06-23-2016 A Gen MUNOZ MD PSC EPISCLERITI S RIGHT EYE [...] Gen MUNOZ JAUNDICE PSC Z3049 ENCOUNTER 08-20-2015 [facility] FOR PHYSICIANS SURVEILLANC GROUP E OTHER CONTRACEPTI VES Z308 ENCOUNTER 08-20-2015 [facility] FOR OTHER PHYSICIANS CONTRACEPTI GROUP VE MANAGEMENT R768 OTH SPEC 08-02-2015 GASTROENTER ABNORMAL OLOGY AND IMMUNOLOGIC HEPATOL AL FIND IN SERUM V255 INSERTION 09-07-2012 [facility] DUKES OF IMPLANTABLE SUBDERMAL CONTRACEPTI VE 650 NORMAL 08-08-2012 COMMUNITY DELIVERY ANESTH OF THE BLUE 87223 OTH&UNS CRD 08-08-2012 [facility] ENTANGL [facility] W/O COMPRS INC COMP L&D DELIV 77207 FIRST-DEGRE 08-08-2012 [facility] E PERINEAL [facility] LACERATION INC WITH DELIVERY V270 OUTCOME OF 08-08-2012 [facility] DELIVERY [facility] SINGLE INC LIVEBORN 52591 THREATENED 08-07-2012 [facility] PREMATURE [facility] LABOR INC ANTEPARTUM 58660 OTHER 08-07-2012 HARPEL ROBINA THREATENED LABOR, ANTEPARTUM 64051 CONDYLOMA 08-02-2012 [facility] ACUMINATUM [facility] INC 81495 POOR 08-02-2012 [facility] DUKES GROWTH MGMT MOTH ANTPRTM COND/COMP V222 08-02-2012 [facility] STATE, [facility] INCIDENTAL INC V220 SUPERVISION 07-26-2012 [facility] DUKES OF NORMAL FIRST 38719 ABN MAT 05-13-2012 ANANHT DUKES GLUCOSE TOLERANCE COMPL PG CB/PP UNS EOC 7910 PROTEINURIA 05-10-2012 A[facility] ROSELINE V283 ENCOUNTER 03-31-2012 [facility] DUKES ROUTINE SCREEN MALFORMATIO N ULTRASONIC 43622 EDEMA OR 01-13-2012 [facility] EXCESSIVE [facility] WEIGHT GAIN INC ANTEPARTUM 25246 OTHER 12-31-2011 [facility] SPECIFED HE[facility] COMPLICATIO CLINIC OF N [place] ANTEPARTUM V221 SUPERVISION 12-23-2011 PATHOLOGY & OF OTHER CYTOLOGY NORMAL LAB V7242 12-23-2011 WOMEN'S EXAMINATION HEALTH OR TEST CLINIC OF POSITIVE [place] RESULT V745 SCREENING 12-23-2011 PATHOLOGY & EXAMINATION CYTOLOGY FOR LAB VENEREAL DISEASE Medications Na ND Rx Da Fi Fi [...] 5 35 AR CE MA TA CY WI NO PH EN 5- 32 5 AT [...] MG #3 TA 93 BL 8 ET Procedures Procedure DOS Code Location Performer Comment ECG 63090 [facility] ROUTINE 7 PHYSICIAN ECG S GROUP W/LEAST 12 LDS I&R ONLY ECG 63367 [facility] ROUTINE 7 PHYSICIAN ECG S GROUP W/LEAST 12 LDS I&R ONLY ECG 27631 [facility] ROUTINE 7 [facility] ECG INC INC W/LEAST 12 LDS TRCG ONLY W/O I&R CT THORAX 21907 [facility] 7 MEDICAL W/CONTRAS IMAGING T ASS MATERIAL UNCLASSIF J3490 [facility] IED DRUGS 7 [place] [address] [facility] ANGIOGRAP 7 [facility] HY CHEST INC INC W/CONTRAS T/NONCONT RAST ECG 63093 [facility] ROUTINE 7 PHYSICIAN ECG S GROUP W/LEAST 12 LDS I&R ONLY ECG 82378 [facility] ROUTINE 7 [facility] ECG INC INC W/LEAST 12 LDS TRCG ONLY W/O I&R CULTURE 10006 [facility] BACTERIAL 7 [facility] BLOOD INC INC AEROBIC W/[place] [address] [facility] ANGIOGRAP 7 [facility] HY UPPER INC INC EXTREMITY UNCLASSIF J3490 [facility] IED DRUGS 7 [facility] INC INC COMPREHEN 77919 [facility] SIVE 7 [facility] METABOLIC INC INC PANEL PROTHROMB 33832 [facility] IN TIME 7 [facility] INC INC DUP-SCAN 82266 [facility] XTR VEINS 7 MEDICAL IMAGING UNILATERA ASS L/LIMITED STUDY NON-INVAS 29950 [facility] RONNIE 7 [facility] PHYSIOLOG INC INC IC STUDY EXTREMITY 3 LEVLS SEDIMENTA 46879 [facility] TION RATE 7 [place], [place], RBC INC. INC. AUTOMATED ANTINUCLE 72401 [facility] AR 7 [place], [place], ANTIBODIE INC. INC. S JAMARI C-REACTIV 58335 [facility] E PROTEIN 7 [place], [place], INC. INC. COLLECTIO 55649 A C RENETTA N VENOUS 7 ALEXANDER TOLBERT BLOOD PSC VENIPUNCT URE RADEX 19345 [facility] HAND 7 [facility] MINIMUM 3 INC INC VIEWS RADEX 29602 [facility] WRIST 7 MEDICAL COMPLETE IMAGING MINIMUM 3 ASS VIEWS HPYLORI 35746 LAB [facility]IA BREATH 6 CHATO [facility]ATO ANAL HOLDINGS HOLDINGS UREASE ACT NON-RADAC T ISTOPE COMPREHEN 92236 [facility] SIVE 5 [facility] [place] [address] [facility] LIPASE 5 [facility] INC INC URINLS 83977 A C DENAE DIP 5 ALEXANDER HARO STICK/TAB PSC LET REAGNT NON-AUTO MICRSCPY INJECTION J2405 [facility] 5 [facility] ONDANSETR INC INC ON HCL PER 1 MG BLOOD 26602 A C PHILIPPE COUNT 5 ALEXANDER HARO COMPLETE PSC AUTO&[place] [address] [facility] INFUSION 5 [facility] THERAPY/P INC INC ROPHYLAXI S /DX 1ST TO 1 HR THERAPEUT 95523 [facility] IC 5 [facility] INJECTION INC INC IV PUSH EACH NEW DRUG INSJ 66620 [facility] ANANTH NON-BIODE 5 PHYSICIAN ROSELINE GRADABLE S GROUP DRUG DELIVERY IMPLANT INSJ 10466 ANANTH WAD[place]ORTH NON-BIODE 2 ROSELINE ROSELINE GRADABLE DRUG DELIVERY IMPLANT ETONOGEST J7307 [facility] [place] REL 2 ROSELINE ROSELINE CNTRACPT IMPL SYS INCL IMPL & SPL URINE 78552 [facility] WAD[place]TH 2 ROSELINE ROSELINE TEST VISUAL COLOR CMPRSN METHS NEURAXIAL 66746 [facility] LABOR 2 ANESTH TERRY ANALG/ANE OF THE S PLND BLUE VAGINAL DELIVERY REPAIR OF 7569 Y[facility] OTHER 2 [facility] CURRENT INC INC OBSTETRIC LACERATIO N VAGINAL 16881 ANANTH [place] DELIVERY 2 ROSELINE ROSELINE ONLY W/POSTPAR CATHERINE CARE 64768 Y[facility] Y[facility]ELY NONSTRESS 2 [facility] TEST INC INC 33129 YARELY YARELY NONSTRESS 2 [facility] TEST INC INC DOPPLER 72227 [facility] VELOCIMET 2 ROSELINE ROSELINE RY UMBILICAL ARTERY 16009 [facility] [place] BIOPHYSIC 2 ROSELINE ROSELINE AL PROFILE W/O NON-STRES S TESTING US PREG 16402 [facility] UTERUS 2 ROSELINE ROSELINE REAL TIME F/U TRNSABDL PER FETUS CUL BACT 57429 COMBINED COMBINED XCPT 2 PHYSICIAN PHYSICIAN URINE S LA S LA BLOOD/STO OL AEROBIC ISOL DOPPLER 18609 [facility] VELOCIMET 2 ROSELINE ROSELINE RY UMBILICAL ARTERY US PREG 91032 [facility] UTERUS 2 ROSELINE ROSELINE REAL TIME F/U TRNSABDL PER FETUS 30713 [facility] BIOPHYSIC 2 ROSELINE ROSELINE AL PROFILE W/O NON-STRES S TESTING 88106 [facility] BIOPHYSIC 2 ROSELINE ROSELINE AL PROFILE W/O NON-STRES S TESTING US PREG 73404 A[facility] [place] UTERUS 2 ROSELINE ROSELINE REAL TIME F/U TRNSABDL PER FETUS DOPPLER 10761 [facility] VELOCIMET 2 ROSELINE ROSELINE RY UMBILICAL ARTERY GLUCOSE 19562 [facility] TOLERANCE 2 ROSELINE ROSELINE TEST GTT 3 SPECIMENS US PREG 81636 [facility] UTERUS 2 ROSELINE ROSELINE AFTER 1ST TRIMEST 1/ [place] [address] [facility] ESTRIOL 2 [facility] INC INC GONADOTRO 88329 Y[facility] PIN 2 [facility] CHORIONIC INC INC QUANTITAT RONNIE ALPHA-FET 16861 [facility] OPROTEIN 2 [facility] SERUM INC INC MEDICAL 48950 [facility] NUTRITION 2 [facility] INC INC ASSMT&IVN TJ INDIV EACH 15 WI US PREG 61341 [facility] A[facility] UTERUS 2 HEALTH ROSELINE REAL TIME CLINIC OF W/IMAGE [place] DCMTN TRANSVAG CYTP 79310 PATHOLOGY SYED CERVICAL/ 2 & NANDINI VAGINAL CYTOLOGY REQ LAB INTERP PHYSICIAN CYTP C/V 38697 PATHOLOGY SYED AUTO THIN 2 & NANDINI LYR CYTOLOGY PREPJ SCR LAB MNL RESCR PHYS IADNA 28635 PATHOLOGY SYED NEISSERIA 2 & NANDINI CYTOLOGY GONORRHOE LAB AE AMPLIFIED PROBE TQ IADNA 36449 PATHOLOGY SYED CHLAMYDIA 2 & NANDINI CYTOLOGY TRACHOMAT LAB IS AMPLIFIED PROBE TQ URINE 24155 [facility] 2 [facility] HEALTH TEST CENTER CENTER VISUAL COLOR CMPRSN METHS Encounters Encounter Start End Date Code Location Performer Type Date OFFICE 00612 [facility] CAROL OUTPATIEN 7 7 PHYSICIAN T VISIT S GROUP 25 MINUTES OFFICE 30434 [facility] ANANTH OUTPATIEN 7 7 PHYSICIAN T VISIT S GROUP 15 MINUTES OFFICE 22607 [facility] CAROL OUTPATIEN 7 7 PHYSICIAN T VISIT S GROUP 40 MINUTES HOSPITAL [facility]ELY - 7 7 [facility] OUTPATIEN INC T HOSPITAL YARELY - 7 7 [facility] OUTPATIEN INC T [facility]OSPITAL YARELY - 7 7 [facility] OUTPATIEN INC T OFFICE 94605 [facility] CAROL OUTPATIEN 7 7 PHYSICIAN T NEW 60 S GROUP MINUTES HOSPITAL YAR[facility] - 7 7 [facility] OUTPATIEN INC T HOSPITAL YARELY - 7 7 [facility] OUTPATIEN INC T HOSPITAL YARELY - 7 7 [facility] OUTPATIEN INC T EMERGENCY 91871 ADDI NORRIS 7 7 PHYSICIAN DEPARTMEN S, [facility] T VISIT HIGH/URGE NT SEVERITY EMERGENCY 23616 YARELY 7 7 [facility] T VISIT LOW/MODER SEVERITY HOSPITAL YARELY - 7 7 [facility] OUTPATIEN [facility] T OFFICE 89553 A C RENETTA OUTPATIEN 7 7 ALEXANDER TOLBERT T VISIT PSC 15 MINUTES HOSPITAL YARELY - 7 7 [facility] OUTPATIEN [facility] T OFFICE 58845 A C OMAR OUTPATIEN 7 7 ALEXANDER TOLBERT T VISIT PSC 15 MINUTES OFFICE 87651 A C DENAE OUTPATIEN 6 6 ALEXANDER HARO T VISIT PSC 15 MINUTES OFFICE 33397 A C DENAE OUTPATIEN 6 6 ALEXANDER HARO T VISIT PSC 15 MINUTES EMERGENCY 07330 [facility] 5 5 [facility] DEPARTMEN INC T VISIT LOW/MODER SEVERITY OFFICE 30082 A C DENAE OUTPATIEN 5 5 ALEXANDER HARO T VISIT PSC 15 MINUTES HOSPITAL YARELY - 5 5 [facility] OUTPATIEN INC T OFFICE 24358 GASTROENT CASE JUS OUTPATIEN 5 5 EROLOGY T VISIT AND 25 HEPATOL MINUTES HOSPITAL YARELY - 2 2 [facility] INPATIENT [facility] YARELY - 2 2 [facility] OUTPATIEN INC HOSPITAL YARELY - 2 2 [facility] OUTPATIEN INC T OFFICE 36753 ANANTH ARNETTE OUTPATIEN 2 2 ROSELINE ROSELINE T VISIT 15 MINUTES OFFICE 11902 [facility] OUTPATIEN 2 2 ROSELINE ROSELINE T VISIT 15 MINUTES OFFICE 37686 [facility] W[facility] OUTPATIEN 2 2 ROSELINE ROSELINE T VISIT 15 MINUTES OFFICE 31750 [facility] OUTPATIEN 2 2 ROSELINE ROSELINE T VISIT 15 MINUTES OFFICE 09263 [facility] OUTPATIEN 2 2 ROSELINE ROSELINE T VISIT 5 MINUTES OFFICE 29649 [facility] OUTPATIEN 2 2 ROSELINE ROSELINE T VISIT 15 MINUTES OFFICE 27447 [facility] OUTPATIEN 2 2 ROSELINE ROSELINE T VISIT 15 MINUTES OFFICE 98675 [facility] OUTPATIEN 2 2 ROSELINE ROSELINE T VISIT 15 MINUTES HOSPITAL YARELY - 2 2 [facility] OUTPATIEN INC T OFFICE 01037 ANANTH ARNETTE OUTPATIEN 2 2 ROSELINE ROSELINE T VISIT 15 MINUTES OFFICE 22838 [facility] OUTPATIEN 2 2 ROSELINE ROSELINE T VISIT 15 MINUTES HOSPITAL YARELY - 2 2 [facility] OUTPATIEN INC T OFFICE 41421 [facility]PATIEN 2 2 HEALTH T NEW 45 CLINIC OF MINUTES [facility] OFFICE 06687 YARELY PRITC[facility] OUTPATIEN 2 2 [facility] HEALTH T VISIT CENTER CENTER 15 MINUTES
--- OUTSIDE RECORDS SUMMARY | 2017-04-29 14:03 | External Medical Summary Rpt ---
Demographics Preferred Language Armenian Marital Status Unknown Anglican Affiliation Unknown Race Unknown Ethnic Group Unknown Author Author ELIZABETH Address Unknown Phone Immunization Unable to retrieve immunization data due to connection failure with Immunization Registry. Please try again later.
--- OUTSIDE RECORDS SUMMARY | 2017-04-29 14:03 | External Medical Summary Rpt ---
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 Name Role Phone A Gen MUNOZ MD PSC, A Unavailable Unavailable Gen MUNOZ MD PSC ISAACS, ISAACS Unavailable Unavailable CASE JUS, CASE JUS Unavailable Unavailable WADSWORTH, WADSWORTH Unavailable Unavailable WADSWORTH ROSELINE, WADSWORTH Unavailable Unavailable ROSELINE WADSWORTH ROSELINE, WADSWORTH Unavailable Unavailable [facility] Un[facility] [place] Unavailable Unavailable [facility] [place] [place] [facility] ABREU Unavailable Unavailable JR, JR Unavailable Unavailable PHILIPPE TAHIR, PHILIPPE Unavailable Unavailable [facility] Unavailable Unavailable [facility] HARPEL ROBINA, HARPEL Unavailable Unavailable ROBINA [facility] Unavailable Unavailable [facility], [facility] Unavailable Unavailable INC, [facility], Unavailable Unavailable [facility] Un[facility] Un[facility], [facility] KILPELA, KILPELA Unavailable Unavailable [facility] Unavailable Unavailable [facility], [facility] Unavailable Unavailable [facility], [facility] [employer] Unavailable Unavailable [facility] [employer] SYED DELATORRE, Unavailable Unavailable RENETTA MENON Unavailable Unavailable [facility] Unavailable Unavailable LAB, [facility] CAROL MEDINA Unavailable Unavailable CISCO STEWART, CISCO Unavailable Unavailable [facility] Unavailable Unavailable OF [place], [facility] [place] Purpose Continuity of Care Document - 12-18-2011 through 2016 Problems Code Diagnosis DOS Provider Status I731 THROMBOANGI 03-30-2017 [facility] ITIS PHYSICIANS OBLITERANS GROUP I998 OTHER 03-30-2017 [facility] DISORDER OF PHYSICIANS GROUP CIRCULATORY SYSTEM N028 RECUR & 03-30-2017 [facility] PERSIST PHYSICIANS HEMATURIA GROUP OT MORPHOLOG CHANGES Z720 TOBACCO USE 03-30-2017 [facility] Z3009 ENCOUNTER 03-29-2017 [facility] 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 I712 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 [facility] 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 I739 PERIPHERAL 03-05-2017 [place] [facility] UNSPECIFIED R230 CYANOSIS 03-05-2017 [facility] I493 VENTRICULAR 03-02-2017 [facility] PREMATURE PHYSICIANS DEPOLARIZAT GROUP ION I749 EMBOLISM 03-02-2017 [facility] AND PHYSICIANS THROMBOSIS GROUP OF UNSPECIFIED ARTERY R509 FEVER 02-15-2017 [facility]NSPECIFIED [facility] INC I779 DISORDER OF 02-03-2017 [facility] ARTERIES [facility] AND INC ARTERIOLES UNSPECIFIED V59672 PAIN IN 01-25-2017 [place] [facility] W57202 PAIN IN 01-25-2017 [place] [facility] V85666 PAIN IN 01-25-2017 [place] [facility] Z681 BODY MASS 01-18-2017 A Gen MUNOZ INDEX BMI [facility] 19 OR LESS ADULT [id number] PAIN IN 12-15-2016 [place] [facility] W[facility]ST [facility] I35906 PAIN IN 12-15-2016 [place] [facility] R110 NAUSEA 12-14-2016 A Gen MUNOZ MD PSC [id number] UNSPECIFIED 06-23-2016 A Gen MUNOZ MD PSC [...] Gen MUNOZ JAUNDICE PSC Z3049 ENCOUNTER 08-20-2015 [facility] FOR PHYSICIANS SURVEILLANC GROUP E OTHER CONTRACEPTI VES Z308 ENCOUNTER 08-20-2015 [facility] FOR OTHER PHYSICIANS CONTRACEPTI GROUP VE MANAGEMENT R768 OTH SPEC 08-02-2015 [facility] ABNORMAL OLOGY AND IMMUNOLOGIC HEPATOL AL FIND IN SERUM V255 INSERTION 09-07-2012 [facility] DUKES OF IMPLANTABLE SUBDERMAL CONTRACEPTI VE 650 NORMAL 08-08-2012 COMMUNITY DELIVERY ANESTH OF THE BLUE 80420 OTH&UNS CRD 08-08-2012 [facility]ANGL [facility] W/O COMPRS INC COMP L&D DELIV 22730 FIRST-DEGRE 08-08-2012 [facility] E PERINEAL [facility] LACERATION INC WITH DELIVERY V270 OUTCOME OF 08-08-2012 [facility] DELIVERY [facility] SINGLE INC LIVEBORN 04328 THREATENED 08-07-2012 [facility] PREMATURE [facility] LABOR INC ANTEPARTUM 24343 OTHER 08-07-2012 HARPEL ROBINA THREATENED LABOR, ANTEPARTUM 18850 CONDYLOMA 08-02-2012 [facility] ACUMINATUM [facility] INC 42166 POOR 08-02-2012 [facility] DUKES GROWTH MGMT MOTH ANTPRTM COND/COMP V222 08-02-2012 [facility] STATE, [facility] INCIDENTAL INC V220 SUPERVISION 07-26-2012 A[facility] DUKES OF NORMAL FIRST 10102 ABN MAT 05-13-2012 A[facility] DUKES GLUCOSE TOLERANCE COMPL PG CB/PP UNS EOC 7910 PROTEINURIA 05-10-2012 AANNTH ROSELINE V283 ENCOUNTER 03-31-2012 A[facility] DUKES ROUTINE SCREEN MALFORMATIO N ULTRASONIC 23111 EDEMA OR 01-13-2012 [facility] EXCESSIVE [facility] WEIGHT GAIN INC ANTEPARTUM 43515 OTHER 12-31-2011 [facility] [...] 5 [address] MA TA CY MT NO PH EN 5- 32 5 AT [...] Procedure DOS Code Location Performer Comment ECG 66391 [facility] ROUTINE 7 PHYSICIAN ECG S GROUP W/LEAST 12 LDS I&R ONLY ECG 06336 [facility] ROUTINE 7 PHYSICIAN ECG S GROUP W/LEAST 12 LDS I&R ONLY ECG 12704 [facility] ROUTINE 7 [facility] ECG INC INC W/LEAST 12 LDS TRCG ONLY W/O I&R CT THORAX 96533 [place] IS[facility]ACS 7 MEDICAL W/CONTRAS IMAGING T ASS MATERIAL UNCLASSIF J3490 [facility] IED DRUGS 7 [place] [address] [facility] ANGIOGRAP 7 [facility] HY CHEST INC INC W/CONTRAS T/NONCONT RAST ECG 13507 [facility] ROUTINE 7 PHYSICIAN ECG S GROUP W/LEAST 12 LDS I&R ONLY ECG 35781 [facility] ROUTINE 7 [facility] ECG INC INC W/LEAST 12 LDS TRCG ONLY W/O I&R CULTURE 95410 [facility] BACTERIAL 7 [facility] BLOOD INC INC AEROBIC W/[place] [address] [facility] ANGIOGRAP 7 [facility] HY UPPER INC INC EXTREMITY UNCLASSIF J3490 [facility] IED DRUGS 7 [facility] INC INC COMPREHEN 88912 [facility] SIVE 7 [facility] METABOLIC INC INC PANEL PROTHROMB 15432 [facility] IN TIME 7 [facility] INC INC DUP-SCAN 62621 [place] XTR VEINS 7 MEDICAL IMAGING UNILATERA ASS L/LIMITED STUDY NON-INVAS 62560 [facility] RONINE 7 [facility] PHYSIOLOG INC INC IC STUDY EXTREMITY 3 LEVLS SEDIMENTA 70023 [facility] TION RATE 7 [place] RBC INC. INC. AUTOMATED ANTINUCLE 02779 [facility] OF [place] 7 [place] ANTIBODIE INC. INC. S JAMARI C-REACTIV 89834 [facility] E PROTEIN 7 [place], INC. INC. COLLECTIO 33617 A C RENETTA N VENOUS 7 ALEXANDER TOBLERT BLOOD PSC VENIPUNCT URE RADEX 75823 [facility] HAND 7 [facility] MINIMUM 3 INC INC VIEWS RADEX 68468 [place] ISAACS WRIST 7 MEDICAL COMPLETE IMAGING MINIMUM 3 ASS VIEWS HPYLORI 76086 LAB [facility] THALIA BREATH 6 [facility] ANAL HOLDINGS HOLDINGS UREASE ACT NON-RADAC T ISTOPE COMPREHEN 90720 [facility] SIVE 5 [facility] [place] [address] [facility] LIPASE 5 [facility] INC INC URINLS 22458 A C DENAE DIP 5 ALEXANDER HARO STICK/TAB PSC LET REAGNT NON-AUTO MICRSCPY INJECTION J2405 [facility] 5 [facility] ONDANSETR INC INC ON HCL PER 1 MG BLOOD 91650 A C PHILIPPE COUNT 5 ALEXANDER HARO COMPLETE PSC AUTO&[place] [address] [facility] INFUSION 5 [facility] THERAPY/P INC INC ROPHYLAXI S /DX 1ST TO 1 HR THERAPEUT 21618 [facility] IC 5 [facility] INJECTION INC INC IV PUSH EACH NEW DRUG INSJ 15933 [facility] ANANTH NON-BIODE 5 PHYSICIAN ROSELINE GRADABLE S GROUP DRUG DELIVERY IMPLANT INSJ 63749 ANATNH WADSWORTH NON-BIODE 2 ROSELINE ROSELINE GRADABLE DRUG DELIVERY IMPLANT ETONOGEST J7307 ANANTH WADSWORTH REL 2 ROSELINE ROSELINE CNTRACPT IMPL SYS INCL IMPL & SPL URINE 25509 ANANTH WADSWORTH 2 ROSELINE ROSELINE TEST VISUAL COLOR CMPRSN METHS NEURAXIAL 16175 [facility] LABOR 2 ANESTH TERRY ANALG/ANE OF THE S PLND BLUE VAGINAL DELIVERY REPAIR OF 7569 Y[facility] OTHER 2 [facility] CURRENT INC INC OBSTETRIC LACERATIO N VAGINAL 97479 ANANTH WAD[place]TH DELIVERY 2 ROSELINE ROSELINE ONLY W/POSTPAR CATHERINE CARE 53729 Y[facility]ELY YARELY NONSTRESS 2 [facility] TEST INC INC 04615 YARELY YARELY NONSTRESS 2 [facility] TEST INC INC DOPPLER 65414 [facility] VELOCIMET 2 ROSELINE ROSELINE RY UMBILICAL ARTERY 90606 [facility] BIOPHYSIC 2 ROSELINE ROSELINE AL PROFILE W/O NON-STRES S TESTING US PREG 03246 [facility] WAD[facility] UTERUS 2 ROSELINE ROSELINE REAL TIME F/U TRNSABDL PER FETUS CUL BACT 25697 COMBINED COMBINED XCPT 2 PHYSICIAN PHYSICIAN URINE S LA S LA BLOOD/STO OL AEROBIC ISOL DOPPLER 44529 [facility] VELOCIMET 2 ROSELINE ROSELINE RY UMBILICAL ARTERY US PREG 06019 [place] UTERUS 2 ROSELINE ROSELINE REAL TIME F/U TRNSABDL PER FETUS 19936 [facility] BIOPHYSIC 2 ROSELINE ROSELINE AL PROFILE W/O NON-STRES S TESTING 08128 [facility] BIOPHYSIC 2 ROSELINE ROSELINE AL PROFILE W/O NON-STRES S TESTING US PREG 59692 ANANTH [place] UTERUS 2 ROSELINE ROSELINE REAL TIME F/U TRNSABDL PER FETUS DOPPLER 98325 [facility] VELOCIMET 2 ROSELINE ROSELINE RY UMBILICAL ARTERY GLUCOSE 59417 [facility] TOLERANCE 2 ROSELINE ROSELINE TEST GTT 3 SPECIMENS US PREG 62906 WAD[facility] WADSWORTH UTERUS 2 ROSELINE ROSELINE AFTER 1ST TRIMEST 1/ [place] [address] Y[facility] ESTRIOL 2 [facility] INC INC GONADOTRO 17440 Y[facility] PIN 2 [facility] CHORIONIC INC INC QUANTITAT RONNIE ALPHA-FET 27059 [facility] OPROTEIN 2 [facility] SERUM INC INC MEDICAL 80773 Y[facility]ELY [facility] NUTRITION 2 [facility] INC INC ASSMT&IVN TJ INDIV EACH 15 MT US PREG 37140 [facility] A[facility] UTERUS 2 HEALTH ROSELINE REAL TIME CLINIC OF W/IMAGE KIMBERLY DCMTN TRANSVAG CYTP 83080 PATHOLOGY SYED CERVICAL/ 2 & NANDINI VAGINAL CYTOLOGY REQ LAB INTERP PHYSICIAN CYTP C/V 45973 PATHOLOGY SYED AUTO THIN 2 & NANDINI LYR CYTOLOGY PREPJ SCR LAB MNL RESCR PHYS IADNA 64590 PATHOLOGY SYED NEISSERIA 2 & NANDINI CYTOLOGY GONORRHOE LAB AE AMPLIFIED PROBE TQ IADNA 10952 PATHOLOGY SYED CHLAMYDIA 2 & NANDINI CYTOLOGY TRACHOMAT LAB IS AMPLIFIED PROBE TQ URINE 96593 YARELY PRITCHETT 2 [facility] CENTER VISUAL COLOR CMPRSN METHS Encounters Encounter Start End Date Code Location Performer Type Date OFFICE 66124 [facility] CAROL OUTPATIEN 7 7 PHYSICIAN T VISIT S GROUP 25 MINUTES OFFICE 22107 [facility] ANANTH OUTPATIEN 7 7 PHYSICIAN T VISIT S GROUP 15 MINUTES OFFICE 92433 [facility] CAROL OUTPATIEN 7 7 PHYSICIAN T VISIT S GROUP 40 MINUTES HOSPITAL YARELY - 7 7 [facility] OUTPATIEN INC T HOSPITAL YARELY - 7 7 [facility] OUTPATIEN INC T [facility]OSPITAL YARELY - 7 7 [facility] INC T OFFICE 34621 [facility] CAROL OUTPATIEN 7 7 PHYSICIAN T NEW 60 S GROUP MINUTES HOSPITAL Y[facility] - 7 7 [facility] INC T [facility] YARELY - 7 7 [facility] T [facility] YARELY - 7 7 [facility] OUTPATIEN INC T EMERGENCY 36370 ADDI NORRIS 7 7 PHYSICIAN DEPARTMEN S, [facility] T VISIT HIGH/URGE NT SEVERITY EMERGENCY 90320 YARELY 7 7 [facility] T VISIT LOW/MODER SEVERITY HOSPITAL YARELY - 7 7 [facility] OUTPATIEN [facility] T OFFICE 17727 A C RENETTA OUTPATIEN 7 7 ALEXANDER TOLBERT T VISIT PSC 15 MINUTES HOSPITAL YARELY - 7 7 [facility] OUTPATIEN [facility] T OFFICE 17185 A C OMAR OUTPATIEN 7 7 ALEXANDER TOLBERT T VISIT PSC 15 MINUTES OFFICE 82901 A C DENAE OUTPATIEN 6 6 ALEXANDER HARO T VISIT PSC 15 MINUTES OFFICE 27880 A C DENAE OUTPATIEN 6 6 ALEXANDER HARO T VISIT PSC 15 MINUTES EMERGENCY 02038 YARELY 5 5 [facility] DEPARTMEN INC T VISIT LOW/MODER SEVERITY OFFICE 91015 A C DENAE OUTPATIEN 5 5 ALEXANDER HARO T VISIT PSC 15 MINUTES HOSPITAL YARELY - 5 5 [facility] OUTPATIEN INC T OFFICE 16295 GASTROENT CASE JUS OUTPATIEN 5 5 EROLOGY T VISIT AND 25 HEPATOL MINUTES HOSPITAL YARELY - 2 2 [facility] INPATIENT [facility] HOSPITAL YARELY - 2 2 [facility] OUTPATIEN INC HOSPITAL YARELY - 2 2 [facility] OUTPATIEN INC T OFFICE 20315 ANANTH ARNETTE OUTPATIEN 2 2 ROSELINE ROSELINE T VISIT 15 MINUTES OFFICE 34525 [facility] OUTPATIEN 2 2 ROSELINE ROSELINE T VISIT 15 MINUTES OFFICE 97027 [facility] OUTPATIEN 2 2 ROSELINE ROSELINE T VISIT 15 MINUTES OFFICE 33275 [facility] OUTPATIEN 2 2 ROSELINE ROSELINE T VISIT 15 MINUTES OFFICE 99551 [facility] OUTPATIEN 2 2 ROSELINE ROSELINE T VISIT 5 MINUTES OFFICE 92633 [facility] OUTPATIEN 2 2 ROSELINE ROSELINE T VISIT 15 MINUTES OFFICE 57108 [facility] OUTPATIEN 2 2 ROSELINE ROSELINE T VISIT 15 MINUTES OFFICE 12115 [facility] OUTPATIEN 2 2 ROSELINE ROSELINE T VISIT 15 MINUTES HOSPITAL YARELY - 2 2 [facility] OUTPATIEN INC T OFFICE 43009 ANANTH ARNETTE OUTPATIEN 2 2 ROSELINE ROSELINE T VISIT 15 MINUTES OFFICE 50813 [facility] OUTPATIEN 2 2 ROSELINE ROSELINE T VISIT 15 MINUTES HOSPITAL YARELY - 2 2 [facility] OUTPATIEN INC T OFFICE 03728 [facility] OUTPATI[facility] 2 2 HEALTH T NEW 45 CLINIC OF MINUTES [facility] OFFICE 74163 YARELY RPITCHETT OUTPATIEN 2 2 [facility] T VISIT CENTER CENTER 15 MINUTES
--- OUTSIDE RECORDS SUMMARY | 2017-04-29 14:03 | External Medical Summary Rpt ---
Demographics Preferred Language Urdu Marital Status Unknown Anglican Affiliation Unknown Race Unknown Ethnic Group Unknown Author Author ELIZABETH Address Unknown Phone Immunization Unable to retrieve immunization data due to connection failure with Immunization Registry. Please try again later.
--- OUTSIDE RECORDS SUMMARY | 2017-04-29 14:04 | External Medical Summary Rpt ---
Author Author ELIZABETH Pérez, ELIZABETH Production Organization ELIZABETH [employer] Address Unknown Phone Unavailable Results CHLAMYDIA AND GONORRHEA TESTING Observa Value Referen Units Interpr Notes Date tion ce etation Range COLLECT NA No No No No Nov 24 OR informa informa informa informa 2012 tion in tion in tion in tion in 4:14 PM source source source source data data data data ETHNICI WHITE, No No No No Nov 24 TY NON-HIS informa informa informa informa 2012 PANIC tion in tion in tion in tion in 4:14 PM source source source source data data data data KIT 4--12 No No No No Nov 24 EXPIRAT informa informa informa informa 2012 ION tion in tion in tion in tion in 4:14 PM DATE source source source source data data data data SYMPTOM NO No No No No Nov 24 S informa informa informa informa 2012 tion in tion in tion in tion in 4:14 PM source source source source data data data data REASON INITIAL No No No No Nov 24 FOR FAMILY informa informa informa informa 2012 REQUEST tion in tion in tion in tion in 4:14 PM PLANNIN source source source source G VISIT data data data data SPECIME URINE No No No No Nov 24 N informa informa informa informa 2012 SOURCE tion in tion in tion in tion in 4:14 PM source source source source data data data data PREGNAN NO No No No No Nov 24 T informa informa informa informa 2012 tion in tion in tion in tion in 4:14 PM source source source source data data data data CHART NA No No No No Nov 24 NUMBER informa informa informa informa 2012 tion in tion in tion in tion in 4:14 PM source source source source data data data data Chlamyd NEGATIV No No No NEGATIV Nov 24 ia E informa informa informa E 2012 trachom tion in tion in tion in RESULT= 4:14 PM atis source source source WITHIN rRNA data data data NORMAL [Presen ce] in LIMITSP Unspeci OSITIVE fied specime RESULT= n by Probe & ABNORMA target LEQUIVO ROCKY amplifi RESULT= cation method INDETER MINATEU NSATISF ACTORY RESULT= INVALID Neisser NEGATIV No No No NEGATIV Nov 24 ia E informa informa informa E 2012 gonorrh tion in tion in tion in RESULT= 4:14 PM oeae source source source WITHIN rRNA data data data NORMAL [Presen ce] in LIMITSP Unspeci OSITIVE fied specime RESULT= n by Probe & ABNORMA target LEQUIVO ROCKY amplifi RESULT= cation method INDETER MINATEU NSATISF ACTORY RESULT= INVALID EFFECTI VE NOVEMBE R 2009: THE APTIMA COMBO 2 NUCLEIC ACIDAMP LIFICAT ION ASSAY IS NOT INTENDE D FOR THE EVALUAT ION OFSUSPE CTED SEXUAL ABUSE OR FOR OTHER MEDICO- LEGAL INDICAT IONS.FA LSE POSITIV E RESULTS ARE POSSIBL E.\.br\ This report contain s patient informa tion that must be protect ed in accorda nce with the Health Insuran ce Portabi lity and Account ability Act. CHLAMYDIA AND GONORRHEA TESTING Observa Value Referen Units Interpr Notes Date tion ce etation Range COLLECT NA No No No No Nov 24 OR informa informa informa informa 2012 tion in tion in tion in tion in 4:14 PM source source source source data data data data ETHNICI WHITE, No No No No Nov 24 TY NON-HIS informa informa informa informa 2011 PANIC tion in tion in tion in tion in 4:14 PM source source source source data data data data KIT 4--12 No No No No Nov 24 EXPIRAT informa informa informa informa 2012 ION tion in tion in tion in tion in 4:14 PM DATE source source source source data data data data SYMPTOM NO No No No No Nov 24 S informa informa informa informa 2012 tion in tion in tion in tion in 4:14 PM source source source source data data data data REASON INITIAL No No No No Nov 24 FOR FAMILY informa informa informa informa 2012 REQUEST tion in tion in tion in tion in 4:14 PM PLANNIN source source source source G VISIT data data data data SPECIME URINE No No No No Nov 24 N informa informa informa informa 2012 SOURCE tion in tion in tion in tion in 4:14 PM source source source source data data data data PREGNAN NO No No No No Nov 24 T informa informa informa informa 2012 tion in tion in tion in tion in 4:14 PM source source source source data data data data CHART NA No No No No Nov 24 NUMBER informa informa informa informa 2012 tion in tion in tion in tion in 4:14 PM source source source source data data data data Chlamyd Pending No No No No Nov 24 ia informa informa informa informa 2012 trachom tion in tion in tion in tion in 4:14 PM atis source source source source rRNA data data data data [Presen ce] in Unspeci fied specime n by Probe & target amplifi cation method Neisser Pending No No No \.br\Nov 24 ia informa informa informa is 2012 gonorrh tion in tion in tion in report 4:14 PM oeae source source source contain rRNA data data data s [Presen patient ce] in Unspeci informa fied tion specime that n by must be Probe & target protect ed in amplifi accorda cation nce method with the Health Insuran ce Portabi lity and Account ability Act.
--- OUTSIDE RECORDS SUMMARY | 2017-04-29 14:04 | External Medical Summary Rpt ---
Author Author ELIZABETH Pérez, ELIZABETH Production Organization [facility] Address Unknown Phone Unavailable Results CHLAMYDIA [...]
--- NOTE | 2017-04-29 14:22 | Urgent Treatment Center Report ---
History of Present Issue Date/Time Seen by Provider 04/29/17 1411 Visit Reason Pt arrived:Walked Presenting Problem:after pt presented she rattled on for about 10 mins regarding recent change of suboxon strips to suboxone pills and the fact that they are causing blisters in her mouth. stated [facility] and they told her passport wouldn't cover changing back to the strips. she states they wouldn't look in her mouth. presents today because she states she needs documented proof of an allergic reaction to this med Location if Accident: Onset of symptoms date/time:04/29/17 or onset unknown for: Have you (or family members/close friends) recently traveled outside the [place]? N If Yes, where/when: Have you had exposure to infectious disease within the past month? TB? Other? Specify: c/o sores under tongue since switching from suboxone strips to sublingual tablets Wednesday, 5 days ago. Reports immediate tingling sensation in mouth after first dose and within 48 hours, started to notice white lesions on bottom surface of tongue. Reports she told suboxone clinic but that they just told her passport wouldn't allow change back and didn't examine her mouth. pt has since discussed matter with passport and per pt's report, it can be changed if necessary. They suggested she be seen and have findings documented then take that document back to suboxone clinic. Source patient Exam Limitations no limitations ALLERGIES Coded Allergies: No Known Allergies (02/02/17) Home Medications Reported Medications BUPRENORPHINE HCL/NALOXONE HCL (Suboxone 8 MG-2 MG Sl Film) 1 AMP SL BID #60 History Medical History General CAD? No Angina: No [place]: No Hypertension? No Hyperlipidemia? No CHF? No DVT? No PE? No COPD? No Asthma? No Anemia? No GERD? No Gastric ulcers? No GI Bleed? No Hernia? No Thyroid Problems? No Hypothyroidism? No CVA? No Seizures? No Diabetes? No UTI? No Stones? No BPH? No GB Disease: No Nephritic Syndrome? No Asplenia? No Hepatitis? Yes Sickle Cell Disease? No Arthritis? No Migraines? No Cataracts? No Glaucoma? No MRSA? No HIV? No TB? No Anxiety? No Depression? No Cancer? No More? Yes Additional hx: hep c Immunization HX DT/Tetanus 1-4 YRS Flu THISFLUSEA Pneumonia REFUSES Surgical Hx Previous Surgery?Y WISDOM TEETH Social History Smoking Hx Smoker: Current Every Day Smoker Tobacco: Yes Type Cigarettes Packs/day < 1 Pack Alcohol Alcohol: No Review of Systems All Other Systems Reviewed and Negative Constitutional denies fever, denies malaise ENT mouth pain. denies: mouth swelling, tongue swelling, throat pain, throat swelling. Skin denies rash Physical Exam Vital Signs Vital Signs Date Time Temp Pulse Resp B/P Pulse O2 O2 Flow FiO2 Ox Delivery Rate 04/29 1352 98.0 107 18 130/64 100 04/29 1342 98.0 107 18 130/64 100 General Appearance no apparent distress, thin Ear, Nose, Throat normal pharynx, <1mm aphthae on inferior surface of tongue, three on left and three on right Neck non-tender, supple Respiratory Status No: respiratory distress. Cardiovascular no peripheral edema Neurologic alert, oriented x 3 Skin normal color, warm/dry Medical Decision Making LABS/Meds/Orders Pt receiving controlled substance in ED? No Departure Departure Time of Disposition 1418 Disposition DC Home or Self Care(routine) Clinical Impression Primary Impression: Aphthae, oral Secondary Impressions: Medication reaction Qualifiers: Encounter type: initial encounter Qualified Code: T88.7XXA - Unspecified adverse effect of drug or medicament, initial encounter Condition STABLE Referrals NO REFERRAL FU w/ suboxone clinic. Take discharge papers with our recommendations to their clinic today. Patient Instructions DI for Aphthous Ulcers (Canker Sores) Additional Instructions Possible reaction to new sublingual tablets. Would suggest switching to a different delivery route however, I am unable to make that change for you. FU with suboxone clinic today. There are mouth rinses for aphthous ulcers available over the counter that would help with the pain and also help these improve quicker typically once causative agent is removed. However, these may contain alcohol so I advice you get permission of your suboxone clinic prior to using these rinses. Discharge Counseling Counseled pt/family regarding diagnosis, medications/RX, home care, follow up needs at 1432
[2017-04-29 14:27] VITALS: BP 130/64
== END 2017-04-29 14:27 | disposition home or self-care (01) ==
LOC: ER 13:32 → UTC 13:45 → ER 13:45 → UTC 14:27
DX: K12.0 Recurrent oral aphthae (principal); Z72.0 Tobacco use; T40.4X5A Adverse effect of other synthetic narcotics, initial encounter

== ENCOUNTER 2017-05-30 02:53 | Emergency (ER) | payer MEDICAID ==
[~2017-05-30] VITALS: Ht 162.6 cm; Wt 47.6 kg
[2017-05-30] MEDS ORDERED: KEFLEX 500MG.500 MG PO (03:38)
[2017-05-30] MEDS ORDERED: SEPTRA DS 800 M1 TAB PO (03:38)
--- NOTE | 2017-05-30 03:39 | Emergency Room Report ---
History of Present Illness Time Seen by MD Earl Presenting Problem in Triage Pt arrived:Walked Presenting Problem:HAS RED KNOT ON LOWER RIGHT LEG, STATES IT STARTED OUT FLAT AND SMALLER A WEEK AGO, SAYS SHE UNINTENTIONALLY IRRITATED AREA BY TRYING TO RUB IT OUT. RED AND SWELLING, PALPATED HARD AREA AROUND THE AREA. NO DRAINAGE AT THIS TIME. 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 N Clinical Suspician of Infection? Y Mental Status: 1 - Regular (Normal Baseline) Sepsis Risk:Possible Sepsis Risk Have you (or family members/close friends) recently traveled outside the [place]? N If Yes, where/when: Have you had exposure to infectious disease within the past month? N TB? Other? Specify: Source patient, RN notes reviewed, old records Exam Limitations no limitations Comment reddness and swelling rt lower leg over the last 5 days Cardiac Chest Pain Chest pain indicative of cardiac No Timing/Duration this evening Severity moderate ALLERGIES Coded Allergies: No Known Allergies (02/02/17) Home Medications Reported Medications BUPRENORPHINE HCL/NALOXONE HCL (Suboxone 8 MG-2 MG Sl Film) 1 AMP SL BID #60 History Medical History General CAD? No Angina: No [place]: No Hypertension? No Hyperlipidemia? No CHF? No DVT? No PE? No COPD? No Asthma? No Anemia? No GERD? No Gastric ulcers? No GI Bleed? No Hernia? No Thyroid Problems? No Hypothyroidism? No CVA? No Seizures? No Diabetes? No End Stage Renal Disease? No UTI? No Stones? No BPH? No GB Disease: No Nephritic Syndrome? No Asplenia? No Hepatitis? Yes Sickle Cell Disease? No Arthritis? No Migraines? No Cataracts? No Glaucoma? No MRSA? No HIV? No TB? No Anxiety? No Depression? No Cancer? No More? 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 Respiratory denies cough, denies shortness of breath, denies wheezing Cardiovascular denies chest pain, denies syncope Gastrointestinal denies abdominal pain, denies nausea, denies vomiting Genitourinary denies: dysuria, frequency, hesitancy. Musculoskeletal denies back pain, denies joint pain, denies neck pain Skin see HPI, denies rash, other Psychiatric/Neurological denies headache, denies seizure Physical Exam Vital Signs Vital Signs Date Time Temp Pulse Resp B/P Pulse O2 O2 Flow FiO2 Ox Delivery Rate 05/30 0302 98.4 105 20 115/62 100 - WBC >12,000 or <4,000 or 10% bands? 2 or more SIRS Criteria Met? B/P:115/62 MAP:79 Creatinine >2.0? UA output<0.5ml/kg/hr for 2 hrs? Platelet count >100,000? Lactate >2.0mmol/1? INR >1.2 or PTT > than 60 sec? Evidence of Organ Dysfunction? Provider documented clinical suspician of infection? Y Sepsis Criteria Count: 2 Sepsis Risk: Possible Sepsis Risk General Appearance no apparent distress Eye Exam - bilateral eye PERRL, bilateral eye EOMI Ear, Nose, Throat normal ENT inspection Neck supple Respiratory Status No: respiratory distress. 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 No Results/Orders Current Medication Orders Sig/Perla Start time Last Medication Dose Route Stop Time Status Admin Lidocaine HCl 0 .STK-MED ONE 05/30 320 DC .ROUTE Orders Procedure Date/time Status CULTURE, WOUND 05/30 333 Active Procedures Incision and Drainage Incision and Drainage Risks/benefits discussed with pt/guardian? Yes Problem type Abcess Location rt lower leg Size cm 2.0 Anesthesia Lidocaine 1% Blade Size 15 I & D Procedure Simple, betadine prep, sterile drapes applied, Scalpel incision cm-, Pus large amount, Cultured, Mult. loculations broken , Sterile Dressing Applied. no : Complex, Needle aspiration, Pus small amount, Dissection, Irrigation ml-, gauze wick placed, Packed. Departure Departure Time of Disposition 320 Disposition DC Home or Self Care(routine) Clinical Impression Primary Impression: Abscess of leg, right Condition STABLE Referrals Rolly TOLBERT,Lester (Family) Patient Instructions DI for Skin Abscess Additional Instructions keep clean and use meds and see pcp for culture results and follow up Discharge Counseling Counseled pt/family regarding diagnosis, test results, medications/RX, follow up needs Prescriptions Current Visit Scripts CEPHALEXIN (Keflex 500MG Capsule) 500 MG PO Q8H #30 CAP SULFAMETHOXAZOLE/TRIMETHOPRIM (Sulfamethoxazole-Tmp Ds Tablet) 1 TAB PO BID #20 TAB ED Critical Care Critical Care No at [id number]
--- NOTE | 2017-05-30 03:39 | Emergency Room Report ---
History of Present Illness Time Seen by MD Earl Presenting Problem in Triage Pt arrived:Walked Presenting Problem:HAS RED KNOT ON LOWER RIGHT LEG, STATES IT STARTED OUT FLAT AND SMALLER A WEEK AGO, SAYS SHE UNINTENTIONALLY IRRITATED AREA BY TRYING TO RUB IT OUT. RED AND SWELLING, PALPATED HARD AREA AROUND THE AREA. NO DRAINAGE AT THIS TIME. 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 N Clinical Suspician of Infection? Y Mental Status: 1 - Regular (Normal Baseline) Sepsis Risk:Possible Sepsis Risk Have you (or family members/close friends) recently traveled outside the [place]? N If Yes, where/when: Have you had exposure to infectious disease within the past month? N TB? Other? Specify: Source patient, RN notes reviewed, old records Exam Limitations no limitations Comment reddness and swelling rt lower leg over the last 5 days Cardiac Chest Pain Chest pain indicative of cardiac No Timing/Duration this evening Severity moderate ALLERGIES Coded Allergies: No Known Allergies (02/02/17) Home Medications Reported Medications BUPRENORPHINE HCL/NALOXONE HCL (Suboxone 8 MG-2 MG Sl Film) 1 AMP SL BID #60 History Medical History General CAD? No Angina: No [place]: No Hypertension? No Hyperlipidemia? No CHF? No DVT? No PE? No COPD? No Asthma? No Anemia? No GERD? No Gastric ulcers? No GI Bleed? No Hernia? No Thyroid Problems? No Hypothyroidism? No CVA? No Seizures? No Diabetes? No End Stage Renal Disease? No UTI? No Stones? No BPH? No GB Disease: No Nephritic Syndrome? No Asplenia? No Hepatitis? Yes Sickle Cell Disease? No Arthritis? No Migraines? No Cataracts? No Glaucoma? No MRSA? No HIV? No TB? No Anxiety? No Depression? No Cancer? No More? 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 Respiratory denies cough, denies shortness of breath, denies wheezing Cardiovascular denies chest pain, denies syncope Gastrointestinal denies abdominal pain, denies nausea, denies vomiting Genitourinary denies: dysuria, frequency, hesitancy. Musculoskeletal denies back pain, denies joint pain, denies neck pain Skin see HPI, denies rash, other Psychiatric/Neurological denies headache, denies seizure Physical Exam Vital Signs Vital Signs Date Time Temp Pulse Resp B/P Pulse O2 O2 Flow FiO2 Ox Delivery Rate 05/30 0302 98.4 105 20 115/62 100 - WBC >12,000 or <4,000 or 10% bands? 2 or more SIRS Criteria Met? B/P:115/62 MAP:79 Creatinine >2.0? UA output<0.5ml/kg/hr for 2 hrs? Platelet count >100,000? Lactate >2.0mmol/1? INR >1.2 or PTT > than 60 sec? Evidence of Organ Dysfunction? Provider documented clinical suspician of infection? Y Sepsis Criteria Count: 2 Sepsis Risk: Possible Sepsis Risk General Appearance no apparent distress Eye Exam - bilateral eye PERRL, bilateral eye EOMI Ear, Nose, Throat normal ENT inspection Neck supple Respiratory Status No: respiratory distress. 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 No Results/Orders Current Medication Orders Sig/Perla Start time Last Medication Dose Route Stop Time Status Admin Lidocaine HCl 0 .STK-MED ONE 05/30 320 DC .ROUTE Orders Procedure Date/time Status CULTURE, WOUND 05/30 333 Active Procedures Incision and Drainage Incision and Drainage Risks/benefits discussed with pt/guardian? Yes Problem type Abcess Location rt lower leg Size cm 2.0 Anesthesia Lidocaine 1% Blade Size 15 I & D Procedure Simple, betadine prep, sterile drapes applied, Scalpel incision cm-, Pus large amount, Cultured, Mult. loculations broken , Sterile Dressing Applied. no : Complex, Needle aspiration, Pus small amount, Dissection, Irrigation ml-, gauze wick placed, Packed. Departure Departure Time of Disposition 320 Disposition DC Home or Self Care(routine) Clinical Impression Primary Impression: Abscess of leg, right Condition STABLE Referrals Rolly TOLBERT,Lester (Family) Patient Instructions DI for Skin Abscess Additional Instructions keep clean and use meds and see pcp for culture results and follow up Discharge Counseling Counseled pt/family regarding diagnosis, test results, medications/RX, follow up needs Prescriptions Current Visit Scripts CEPHALEXIN (Keflex 500MG Capsule) 500 MG PO Q8H #30 CAP SULFAMETHOXAZOLE/TRIMETHOPRIM (Sulfamethoxazole-Tmp Ds Tablet) 1 TAB PO BID #20 TAB ED Critical Care Critical Care No at 4283
[2017-05-30 03:48] VITALS: BP 115/62
== END 2017-05-30 03:48 | disposition home or self-care (01) ==
LOC: ER 02:53
PROC: 0J9N0ZZ Drainage of Right Lower Leg Subcutaneous Tissue and Fascia, Open Approach (ICD-10-PCS; principal; 2017-05-30)
DX: L02.415 Cutaneous abscess of right lower limb (principal)

== ENCOUNTER → 2017-09-09 | Outpatient (CLI) | payer MEDICAID ==
[~2017-09-09] MED LIST changes: +KEFLEX 500MG.500 MG PO; +SEPTRA DS 800 M1 TAB PO; +XARELTO15 MG PO
== END ==
LOC: RAD 14:09
DX: M79.89 Other specified soft tissue disorders (principal); I73.1 Thromboangiitis obliterans [Buerger's disease]

== ENCOUNTER 2017-09-12 16:03 | Emergency (ER) | payer MEDICAID ==
[~2017-09-12] VITALS: Ht 162.6 cm; Wt 39.5 kg
[~2017-09-12 16:03] MED LIST changes: -XARELTO15 MG PO
[2017-09-12] MEDS ORDERED: XARELTO15 MG PO (16:14)
--- NOTE | 2017-09-12 16:17 | Emergency Room Report ---
History of Present Illness Time Seen by 1610 Presenting Problem in Triage Pt arrived:Walked Presenting Problem:PT ADVISES HER RIGHT ARM IS SWELLING AND SHE WAS DIAGNOSED WITH A BLOOD CLOT ON WEDNESDAY. 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 N Clinical Suspician of Infection? N Mental Status: 1 - Regular (Normal Baseline) Sepsis Risk:Low Sepsis Risk Have you (or family members/close friends) recently traveled outside the [place]? N If Yes, where/when: Have you had exposure to infectious disease within the past month? N TB? Other? Specify: Source patient, RN notes reviewed, family, old records Exam Limitations no limitations Comment recent dx of dvt rt upper ext on xarelto with inc pain today Cardiac Chest Pain Chest pain indicative of cardiac No Timing/Duration this evening Severity moderate ALLERGIES Coded Allergies: No Known Allergies (02/02/17) Home Medications Reported Medications BUPRENORPHINE HCL/NALOXONE HCL (Suboxone 8 MG-2 MG Sl Film) 1 AMP SL BID #60 Rivaroxaban (Xarelto) 15 MG PO DAILY #42 History Medical History General CAD? No Angina: No [place]: No Hypertension? No Hyperlipidemia? No CHF? No DVT? No PE? No COPD? No Asthma? No Anemia? No GERD? No Gastric ulcers? No GI Bleed? No Hernia? No Thyroid Problems? No Hypothyroidism? No CVA? No Seizures? No Diabetes? No End Stage Renal Disease? No UTI? No Stones? No BPH? No GB Disease: No Nephritic Syndrome? No Asplenia? No Hepatitis? Yes Sickle Cell Disease? No Arthritis? No Migraines? No Cataracts? No Glaucoma? No MRSA? No HIV? No TB? No Anxiety? No Depression? No Cancer? No More? 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 Respiratory denies cough, denies stridor Cardiovascular denies chest pain, denies syncope Gastrointestinal denies abdominal pain, denies diarrhea, denies vomiting Genitourinary denies: dysuria, frequency, hesitancy, hematuria. Musculoskeletal see HPI, denies back pain, denies joint pain, denies joint swelling, denies neck pain, other Skin denies rash Psychiatric/Neurological denies headache, denies seizure Physical Exam Vital Signs Vital Signs Date Time Temp Pulse Resp B/P Pulse O2 O2 Flow FiO2 Ox Delivery Rate 09/12 1611 98.5 104 16 115/69 95 - WBC >12,000 or <4,000 or 10% bands? 2 or more SIRS Criteria Met? B/P:115/69 MAP:84 Creatinine >2.0? UA output<0.5ml/kg/hr for 2 hrs? Platelet count >100,000? Lactate >2.0mmol/1? INR >1.2 or PTT > than 60 sec? Evidence of Organ Dysfunction? Provider documented clinical suspician of infection? N Sepsis Criteria Count: 1 Sepsis Risk: Low Sepsis Risk General Appearance no apparent distress Eye Exam - bilateral eye PERRL, bilateral eye EOMI Ear, Nose, Throat normal ENT inspection Neck supple Respiratory Status No: respiratory distress. 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 No Departure Departure Time of Disposition 165 Disposition DC Home or Self Care(routine) Clinical Impression Primary Impression: DVT (deep venous thrombosis) Qualifiers: DVT location: upper extremity Affected thrombotic vein of extremity : unspecified vein of extremity Chronicity: acute Laterality: right Qualified Code: I82.621 - Acute embolism and thrombosis of deep veins of right upper extremity Condition STABLE Referrals Lester Oneal MD (Family) discussed with dr oneal Patient Instructions DI for Deep Vein Thrombosis Additional Instructions use meds as directed Discharge Counseling Counseled pt/family regarding diagnosis, test results, follow up needs ED Critical Care Critical Care No at 1716
--- NOTE | 2017-09-12 16:17 | Emergency Room Report ---
History of Present Illness Time Seen by 1610 Presenting Problem in Triage Pt arrived:Walked Presenting Problem:PT ADVISES HER RIGHT ARM IS SWELLING AND SHE WAS DIAGNOSED WITH A BLOOD CLOT ON WEDNESDAY. 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 N Clinical Suspician of Infection? N Mental Status: 1 - Regular (Normal Baseline) Sepsis Risk:Low Sepsis Risk Have you (or family members/close friends) recently traveled outside the [place]? N If Yes, where/when: Have you had exposure to infectious disease within the past month? N TB? Other? Specify: Source patient, RN notes reviewed, family, old records Exam Limitations no limitations Comment recent dx of dvt rt upper ext on xarelto with inc pain today Cardiac Chest Pain Chest pain indicative of cardiac No Timing/Duration this evening Severity moderate ALLERGIES Coded Allergies: No Known Allergies (02/02/17) Home Medications Reported Medications BUPRENORPHINE HCL/NALOXONE HCL (Suboxone 8 MG-2 MG Sl Film) 1 AMP SL BID #60 Rivaroxaban (Xarelto) 15 MG PO DAILY #42 History Medical History General CAD? No Angina: No ID: No Hypertension? No Hyperlipidemia? No CHF? No DVT? No PE? No COPD? No Asthma? No Anemia? No GERD? No Gastric ulcers? No GI Bleed? No Hernia? No Thyroid Problems? No Hypothyroidism? No CVA? No Seizures? No Diabetes? No End Stage Renal Disease? No UTI? No Stones? No BPH? No GB Disease: No Nephritic Syndrome? No Asplenia? No Hepatitis? Yes Sickle Cell Disease? No Arthritis? No Migraines? No Cataracts? No Glaucoma? No MRSA? No HIV? No TB? No Anxiety? No Depression? No Cancer? No More? 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 Respiratory denies cough, denies stridor Cardiovascular denies chest pain, denies syncope Gastrointestinal denies abdominal pain, denies diarrhea, denies vomiting Genitourinary denies: dysuria, frequency, hesitancy, hematuria. Musculoskeletal see HPI, denies back pain, denies joint pain, denies joint swelling, denies neck pain, other Skin denies rash Psychiatric/Neurological denies headache, denies seizure Physical Exam Vital Signs Vital Signs Date Time Temp Pulse Resp B/P Pulse O2 O2 Flow FiO2 Ox Delivery Rate 09/12 1611 98.5 104 16 115/69 95 - WBC >12,000 or <4,000 or 10% bands? 2 or more SIRS Criteria Met? B/P:115/69 MAP:84 Creatinine >2.0? UA output<0.5ml/kg/hr for 2 hrs? Platelet count >100,000? Lactate >2.0mmol/1? INR >1.2 or PTT > than 60 sec? Evidence of Organ Dysfunction? Provider documented clinical suspician of infection? N Sepsis Criteria Count: 1 Sepsis Risk: Low Sepsis Risk General Appearance no apparent distress Eye Exam - bilateral eye PERRL, bilateral eye EOMI Ear, Nose, Throat normal ENT inspection Neck supple Respiratory Status No: respiratory distress. 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 No Departure Departure Time of Disposition 165 Disposition DC Home or Self Care(routine) Clinical Impression Primary Impression: DVT (deep venous thrombosis) Qualifiers: DVT location: upper extremity Affected thrombotic vein of extremity : unspecified vein of extremity Chronicity: acute Laterality: right Qualified Code: I82.621 - Acute embolism and thrombosis of deep veins of right upper extremity Condition STABLE Referrals Lester Oneal MD (Family) discussed with dr oneal Patient Instructions DI for Deep Vein Thrombosis Additional Instructions use meds as directed Discharge Counseling Counseled pt/family regarding diagnosis, test results, follow up needs ED Critical Care Critical Care No at 1717
--- OUTSIDE RECORDS SUMMARY | 2017-09-12 16:17 | External Medical Summary Rpt | CCD ---
Author Author , ELIZABETH Organization ELIZABETH Address Unknown Phone [email or web address] Care Team Providers Care Sandwich Artist Name Role Phone A Gen MUNOZ MD PSC, A Unavailable Unavailable Gen MUNOZ MD PSC Kanu Singh MD, Unavailable Unavailable Kanu Singh MD CASE JUS, CASE JUS Unavailable Unavailable WAD[place]TH ROSELINE, WADSWORTH Unavailable Unavailable ROSELINE [place]TH ROSELINE, WADSWORTH Unavailable Unavailable ROSELINE [facility] [place] [place]available [place], [facility] Unavailable Unavailable THE [facility], [facility] ANEST[facility] OF THE [facility]UE DENAE DALAL Unavailable Unavailable [facility] Unavailable Unavailable [facility], [facility] HARPEL ROBINA, HARPEL Unavailable Unavailable ROBINA [facility] Unavailable Unavailable CENTER, [facility] Un[facility] Unavailable INC, [facility], Unavailable Unavailable [facility] Un[facility] Unavailable [facility], [facility], [facility] Unavailable Unavailable HOLDINGS, [facility], Unavailable Unavailable [facility], Unavailable Unavailable ADDI [facility] Unavailable Unavailable LAB, [facility]Y & CYTOLOGY LAB CISCO STEWART, CISCO Unavailable Unavailable [facility] Unavailable Unavailable OF [place], [facility] [place] Purpose Continuity of Care Document - 12-18-2011 through 2016 Problems Code Diagnosis DOS Provider Status [id number] CUTANEOUS 05-30-2017 [facility] LIMB F17.210 Nicotine 04-27-2017 dependence, cigarettes, uncomplicat ed I96 Gangrene, 04-27-2017 not elsewhere classified I99.8 Other 04-27-2017 disorder of circulatory system M79.645 Pain in 04-27-2017 left finger(s) Z87.898 Personal 04-27-2017 history of other specified conditions M79.646 Pain in 04-20-2017 unspecified finger(s) M7989 OTHER 04-20-2017 [facility] SOFT TISSUE [facility] DISORDERS R937 ABN FIND ON 04-20-2017 [facility] OTH PART [facility] MUSCULOSKEL ETAL SYS [id number] LAC W/O FB 04-20-2017 [facility] INDEX [facility] FINGER W/O FOUNDATION DAMAGE NAIL INIT I731 THROMBOANGI 04-13-2017 A Gen MUNOZ ITIS PSC OBLITERANS [id number] UNSPECIFIED 04-13-2017 A Gen MUNOZ OPEN WOUND PSC RT UPPER ARM INITIAL ENC [id number] UNS OPEN 04-13-2017 A Gen MUNOZ WND LT INDX PSC FINGER W/O DAMAGE NAIL SUB I998 OTHER 03-30-2017 [facility] DISORDER OF PHYSICIANS GROUP CIRCULATORY SYSTEM N028 RECUR & 03-30-2017 [facility] PERSIST PHYSICIANS HEMATURIA GROUP OT MORPHOLOG CHANGES Z720 TOBACCO USE 03-30-2017 [facility] Z3009 ENCOUNTER 03-29-2017 [facility] 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 I739 PERIPHERAL 03-05-2017 [facility] UNSPECIFIED R230 CYANOSIS 03-05-2017 [facility] I493 VENTRICULAR 03-02-2017 [facility] PREMATURE PHYSICIANS DEPOLARIZAT GROUP ION I749 EMBOLISM 03-02-2017 [facility] AND PHYSICIANS THROMBOSIS GROUP OF UNSPECIFIED ARTERY Y28527 PAIN IN 01-25-2017 [facility] [place] [facility] J66212 PAIN IN 01-25-2017 [facility] [place] [facility] V05501 PAIN IN 01-25-2017 [facility] Z681 BODY MASS 01-18-2017 A Gen MUNOZ INDEX 19.9 PSC OR LESS ADULT B98846 PAIN IN 12-15-2016 [facility] [place] [facility] P42900 PAIN IN 12-15-2016 [facility] R110 NAUSEA 12-14-2016 A Gen MUNOZ MD PSC N20300 UNSPECIFIED 06-23-2016 Carmen MUNOZ MD PSC EPISCLERITI [...] PSC WITHOUT HEPATIC COMA E860 DEHYDRATION 09-23-2015 [facility] INC K5900 CONSTIPATIO 09-23-2015 [facility] UNSPECIFIED INC R1110 VOMITING 09-23-2015 [facility]PEC[facility]IED [facility] INC R17 UNSPECIFIED 09-23-2015 A Gen MUNOZ JAUNDICE PSC Z3049 ENCOUNTER 08-20-2015 [facility] FOR PHYSICIANS SURVEILLANC GROUP E OTHER CONTRACEPTI VES Z308 ENCOUNTER 08-20-2015 [facility] FOR OTHER PHYSICIANS CONTRACEPTI GROUP VE MANAGEMENT R768 OTH SPEC 08-02-2015 GASTROENTER ABNORMAL OLOGY AND IMMUNOLOGIC HEPATOL AL FIND IN SERUM 305.1 305.1 08-24-2013 [place] TOBACCO USE [facility] 787.91 787.91 08-24-2013 [place] DIARRHEA [facility] V255 INSERTION 09-07-2012 A[facility] RO[facility] OF IMPLANTABLE SUBDERMAL CONTRACEPTI VE 650 NORMAL 08-08-2012 [facility] DELIVERY ANEST[facility] OF THE [facility]UE 91748 OTH&UNS CRD 08-08-2012 [facility]GL [facility] W/O COMPRS INC COMP L&D DELIV 78891 FIRST-DEGRE 08-08-2012 [facility] E PERINEAL [facility] LACERATION INC WITH DELIVERY V270 OUTCOME OF 08-08-2012 [place] DELIVERY [facility] SINGLE INC LIVEBORN 14102 THREATENED 08-07-2012 [facility] PREMATURE [facility] LABOR INC ANTEPARTUM 73827 OTHER 08-07-2012 HARPEL ROBINA THREATENED LABOR, ANTEPARTUM 99963 CONDYLOMA 08-02-2012 [facility] ACUMINATUM [facility] INC 64398 POOR 08-02-2012 [facility] [place] GROWTH MGMT MOTH ANTPRTM COND/COMP V222 08-02-2012 [facility], [facility] INCIDENTAL INC V220 SUPERVISION 07-26-2012 A[facility] RO[facility] OF NORMAL FIRST 75952 ABN MAT 05-13-2012 [facility] [place] GLUCOSE TOLERANCE COMPL PG CB/PP UNS EOC 7910 PROTEINURIA 05-10-2012 [facility] [place] V283 ENCOUNTER 03-31-2012 [facility] [place] ROUTINE SCREEN MALFORMATIO N ULTRASONIC 97891 EDEMA OR 04-11-2012 [facility] EXCESSIVE [facility] WEIGHT GAIN INC ANTEPARTUM 77042 OTHER 12-31-2011 [facility] COMPLIC[facility]IO CLIN[facility] OF N [place] ANTEPARTUM V221 SUPERVISION 12-23-2011 PATHOLOGY & OF OTHER CYTOLOGY NORMAL LAB V7242 12-23-2011 [facility]OM[facility] EXAMINATION HEALTH OR TEST CLINIC OF POSITIVE [place] RESULT V745 SCREENING 12-23-2011 PATHOLOGY & EXAMINATION CYTOLOGY FOR LAB VENEREAL DISEASE I77.1 STRICTURE OF ARTERY L02.415 CUTANEOUS ABSCESS OF RIGHT LOWER LIMB Allergies, Adverse Reactions, Alerts Type Drug Allergy [...] ia de te s n re d CE 65 08 09 30 10 00 EA Ac PH 86 -2 -[address] ti AL 20 7- 2- 00 00 SI ve EX 01 20 20 49 DE IN 90 17 17 93 5 07 PH 50 AR 0 MA MG CY CA OF PS CY UL NT E HI AN A IN C BALDWIN 53 08 09 20 10 00 EA Ac LF 74 -2 -[address] ti AM 60 7- 2- 00 00 SI ve ET 27 20 20 49 DE HO 20 17 17 93 XA 5 08 PH ZO AR LE MA -T CY MP OF DS CY NT TA HI BL AN ET A IN C ON 55 08 09 15 25 00 RI Ac DA 11 -1 -1 .0 00 TE ti NS 10 8- 5- 00 01 ve ET 15 20 20 17 AI RO 33 17 17 91 D N 0 09 PH HC AR L MA 4 CY MG #3 TA 93 BL 8 ET AT 60 08 09 30 30 00 RI Ac OR 50 -1 -1 .0 00 TE ti VA 52 8- 5- [address] 67 20 20 18 AI AT 10 17 17 59 D IN 9 28 PH AR 80 MA CY MG #3 TA 93 BL 8 ET HY 13 06 06 90 [address] 10 -0 -3 .0 00 IN ti OC 70 6- 0- 00 00 IC ve OD 01 20 20 43 ON 90 17 17 32 PH -A 5 35 AR CE MA TA CY [place] NO PH EN 5- 32 5 XA 50 05 06 30 30 00 RI Ac RE 45 -3 -3 .0 00 TE ti LT 80 0- 0- 00 01 ve O 57 20 20 18 AI 20 93 17 17 59 D 0 27 PH MG AR MA TA CY BL ET #3 93 8 AT 60 05 06 30 30 00 [...] ti 4 ve MG /2 ML AL WI 00 11 0 No OM 64 -1 [...] Bacteria XXX Anaerobe+Aerobe Cult (04-20-2017 10:06) Bacteri [id number] complet a XXX 017 06 No ed Anaerob 10:06 growth e+Aerob (qualif e Cult ier value) SCT NGB6 NO GROWTH DAY 5. L ESR Bld Qn (04-20-2017 10:06) ESR Bld 17 0-20 complet Qn 017 mm/hr ed 10:06 CRP SerPl-mCnc (04-20-2017 10:06) CRP 0.7 0-0.9 complet SerPl-m 017 mg/dL ed Cnc 10:06 COMPREHENSIVE METABOLIC PANEL (08-22-2013 13:35) Glucose 76 74-106 complet 013 mg/dL ed Bld-mCn 13:35 c BUN 13 7-18 complet Bld-mCn 013 mg/dL ed c 13:35 Creat 0.7 0.6-1.0 complet SerPl-m 013 mg/dL ed Cnc 13:35 ESTIMAT 89 50-200 complet ED 013 ML/MIN ed CREATIN 13:35 INE CLEARAN CE GFR 104 59- complet (ESTIMA 013 ML/MIN ed OUMAR) 13:35 Sodium 141 136-145 complet SerPl-s 013 mmoL/L ed Cnc 13:35 Potassi 4.0 3.5-5.1 complet um 013 mmoL/L ed SerPl-s 13:35 Cnc Chlorid 108 98-107 complet e 013 mmoL/L ed SerPl-s 13:35 Cnc CO2 25 21.0-32 complet SerPl-s 013 mmoL/L .0 ed Cnc 13:35 Calcium 7.6 8.5-10. complet 013 mg/dL 1 ed SerPl-m 13:35 Cnc Prot 11-19-2 5.6 6.4-8.2 complet SerPl-m 013 gm/dL ed Cnc 13:35 Albumin 11-19-2 2.8 3.4-5.0 complet 013 gm/dL ed SerPl-m 13:35 Cnc Globuli -19-2 2.8 1.3-3.2 complet n 013 gm/dL ed Ser-mCn 13:35 c Albumin -19-2 1.0 UNK 1.1-1.8 complet /Glob 013 ed SerPl-m 13:35 Rto Bilirub 19-2 0.2 0.2-1.0 complet 013 mg/dL ed SerPl-m 13:35 Cnc AST 11-19-2 28 U/L 15-37 complet SerPl-c 013 ed Cnc 13:35 ALT -19-2 33 U/L 30-65 complet SerPl-c 013 ed Cnc 13:35 ALP -19-2 77 U/L 50-136 complet SerPl-c 013 ed Cnc 13:35 Amylase SerPl-cCnc (08-22-2013 13:35) Amylase 11-19-2 33 U/L 25-115 complet 013 ed SerPl-c 13:35 Cnc LIPASE (08-22-2013 13:35) LIPASE 11-19-2 91 U/L 73-393 complet 013 ed 13:35 CBC with AUTO DIFF (08-22-2013 13:35) WBC # 11-19-2 6.4 4.8-10. complet Bld 013 K/MM3 8 ed Auto 13:35 RBC # 11-19-2 4.39 4.2-5.4 complet Bld 013 M/mm3 ed Auto 13:35 Hgb -19-2 13.3 12.2-16 complet Bld-mCn 013 g/dL .2 ed c 13:35 Hct Fr 08-22-2 39.3 % 37.0-47 complet Bld 013 .0 ed 13:35 MCV RBC 19-2 89.5 fl 82.2-97 complet 013 .8 ed 13:35 MCH RBC 19-2 30.3 pg 27-31.2 complet Qn 013 ed Auto 13:35 MEAN -19-2 33.9 31.8-35 complet CORPUSC 013 g/dl .4 ed ULAR 13:35 HGB CONC RDW RBC 11-19-2 14.3 % 11.5-17 complet Auto 013 .5 ed 13:35 Platele 11-19-2 179 142-424 complet t Bld 013 K/mm3 ed Ql 13:35 Manual MEAN 11-19-2 8.5 fl 7.4-10. complet PLATELE 013 4 ed T 13:35 VOLUME Granulo 11-19-2 65.2 % 37.0-80 complet cytes 013 .0 ed Fr Bld 13:35 Auto LYMPH % 11-19-2 23.6 % 10-50.0 complet 013 ed 13:35 Monocyt 11-19-2 6.7 % 1.7-9.3 complet es Fr 013 [...] Auto B-HCG Ur Ql (08-22-2013 12:45) B-HCG 11-19-2 NEGATIV NEG complet Ur Ql 013 E ed 12:45 URINALYSIS/COMPLETE (08-22-2013 12:45) URINE 11-19-2 YELLOW YELLOW complet COLOR 013 ed 12:45 URINE -19-2 CLEAR CLEAR complet APPEARA 013 ed NCE 12:45 URINE 11-19-2 NEGATIV NEG complet GLUCOSE 013 E ed - 12:45 DIPSTIC K URINE 11-19-2 1+ NEG complet BILIRUB 013 ed IN - 12:45 DIPSTIC K URINE 19-2 1+ NEG complet KETONE 013 mg/dL ed 12:45 URINE -19-2 1.020 1.005-1 complet SPECIFI 013 UNK .030 ed C 12:45 GRAVITY URINE 19-2 NEGATIV NEG complet BLOOD 013 E ed 12:45 URINE -19-2 6.0 UNK 5.0-8.5 complet PH 013 ed 12:45 URINE 19-2 TRACE NEG complet PROTEIN 013 mg/dL ed - 12:45 DIPSTIC K URINE -19-2 0.2 NEG complet UROBILI 013 E.U./dL ed NOGEN - 12:45 DIPSTIC K URINE 08-22-2 NEGATIV NEG complet NITRATE 013 E ed - 12:45 DIPSTIC K URINE -19-2 NEGATIV NEG complet LEUK 013 E ed ESTERAS 12:45 E URINE 08-22-2 3-5 0 complet RBC 013 rbc/hpf ed 12:45 URINE -19-2 3-5 O complet WBC 013 wbc/hpf ed 12:45 URINE -19-2 5-10 0-5 complet SQUAMOU 013 #/hpf ed S CELLS 12:45 Procedures Procedure DOS Code Location Performer Comment COMPREHEN 54604 [facility] SIVE 5 [facility] METABOLIC INC INC PANEL URINLS 21602 A C DENAE DIP 5 ALEXANDER HARO STICK/TAB PSC [place] [address] [facility] LIPASE 5 [facility] INC INC BLOOD 15277 A C PHILIPPE COUNT 5 ALEXANDER HARO COMPLETE PSC AUTO&[place] [address] [facility] INFUSION 5 [facility] THERAPY/P INC INC ROPHYLAXI S /DX 1ST TO 1 HR THERAPEUT 34756 [facility] IC 5 [facility] INJECTION INC INC IV PUSH EACH NEW DRUG INJECTION J2405 [facility] PR[facility]TT 5 [facility] ONDANSETR INC INC ON HCL PER 1 MG INSJ 75827 [facility] ANANTH NON-BIODE 5 PHYSICIAN ROSELINE GRADABLE S GROUP DRUG DELIVERY IMPLANT INSJ 55673 ANANTH ARNETTE NON-BIODE 2 ROSELINE ROSELINE GRADABLE DRUG DELIVERY IMPLANT ETONOGEST J7307 [facility] [place] REL 2 ROSELINE ROSELINE CNTRACPT IMPL SYS INCL IMPL & SPL URINE 91511 [facility] [place] 2 ROSELINE ROESLINE TEST VISUAL COLOR CMPRSN METHS REPAIR OF 7569 Y[facility]ELY [facility]ELY OTHER 2 [facility] CURRENT INC INC OBSTETRIC LACERATIO N NEURAXIAL 14918 [facility] LABOR 2 ANESTH TERRY ANALG/ANE OF THE S PLND BLUE VAGINAL DELIVERY VAGINAL 01899 [facility]NA[facility] [place] DELIVERY 2 ROSELINE ROSELINE ONLY W/POSTPAR CATHERINE CARE 88185 Y[facility]ELY YARELY NONSTRESS 2 [facility] TEST INC INC 35448 YARELY YARELY NONSTRESS 2 [facility] TEST INC INC US PREG 19337 [facility] [place] UTERUS 2 ROSELINE ROSELINE REAL TIME F/U TRNSABDL PER FETUS 26593 [place] BIOPHYSIC 2 ROSELINE ROSELINE AL PROFILE W/O NON-STRES S TESTING DOPPLER 59471 [place] VELOCIMET 2 ROSELINE ROSELINE RY UMBILICAL ARTERY CUL BACT 68983 COMBINED COMBINED XCPT 2 PHYSICIAN PHYSICIAN URINE S LA S LA BLOOD/STO OL AEROBIC ISOL 67505 [place] BIOPHYSIC 2 ROSELINE ROSELINE AL PROFILE W/O NON-STRES S TESTING DOPPLER 67834 [place] VELOCIMET 2 ROSELINE ROSELINE RY UMBILICAL ARTERY US PREG 23054 [place] UTERUS 2 ROSELINE ROSELINE REAL TIME F/U TRNSABDL PER FETUS 59041 [place] BIOPHYSIC 2 ROSELINE ROSELINE AL PROFILE W/O NON-STRES S TESTING DOPPLER 04581 [place] VELOCIMET 2 ROSELINE ROSELINE RY UMBILICAL ARTERY US PREG 31433 [place] UTERUS 2 ROSELINE ROSELINE REAL TIME F/U TRNSABDL PER FETUS GLUCOSE 80658 [place] TOLERANCE 2 ROSELINE ROSELINE TEST GTT 3 SPECIMENS US PREG 07009 ANANTH [place] UTERUS 2 ROSELINE ROSELINE AFTER 1ST TRIMEST GESTATION GONADOTRO 47234 YARELY PR[facility] PIN 2 [facility] CHORIONIC INC INC QUANTITAT RONNIE ALPHA-FET 28548 [facility] OPROTEIN 2 [facility] [place] [place] [address] YAR[facility] ESTRIOL 2 [facility] INC INC MEDICAL 70925 Y[facility]ELY [facility] NUTRITION 2 [facility] INC INC ASSMT&IVN TJ INDIV EACH 15 [place] US PREG 52317 [facility] ANANTH UTERUS 2 HEALTH ROSELINE REAL TIME CLINIC OF W/IMAGE [place] DCMTN TRANSVAG IADNA 25841 PATHOLOGY SYED CHLAMYDIA 2 & NANDINI CYTOLOGY TRACHOMAT LAB IS AMPLIFIED PROBE TQ IADNA 73347 PATHOLOGY SYED NEISSERIA 2 & NANDINI CYTOLOGY GONORRHOE LAB AE AMPLIFIED PROBE TQ CYTP 47858 PATHOLOGY SYED CERVICAL/ 2 & NANDINI VAGINAL CYTOLOGY REQ LAB INTERP PHYSICIAN CYTP C/V 29053 PATHOLOGY SYED AUTO THIN 2 & NANDINI LYR CYTOLOGY PREPJ SCR LAB MNL RESCR PHYS URINE 48377 Y[facility]ELY PR[facility]ICHETT [facility] VISUAL COLOR CMPRSN METHS Encounters Encounter Start End Date Code Location Performer Type Date EMERGENCY 00524 YARELY 5 5 [facility] DEPARTMEN INC T VISIT LOW/MODER SEVERITY OFFICE 38439 Carmen PHILIPPE OUTPATINICHELLE 5 5 ALEXANDER HARO T VISIT PSC 15 MINUTES HOSPITAL YARELY - 5 5 [facility] OUTPATIEN INC T OFFICE 02615 GASTROENT CASE JUS OUTJOAQUIN 5 5 EROLOGY T VISIT AND 25 HEPATOL MINUTES Emergency RICK Singh MD (ER) 3 15:34 3 16:00 [facility] Emergency RICK Singh MD (ER) 3 13:02 3 14:42 [facility] YARELY - 2 2 [facility] INPATIENT [facility] YARELY - 2 2 [facility] OUTPATIEN INC HOSPITAL YARELY - 2 2 [facility] OUTPATIEN INC T OFFICE 47703 ANANTH ARNETTE OUTPATIEN 2 2 ROSELINE ROSELINE T VISIT 15 MINUTES OFFICE 97724 ANA[facility]TH ARNETTE OUTPATIEN 2 2 ROSELINE ROSELINE T VISIT 15 MINUTES OFFICE 44569 A[facility]TH ARNETTE OUTPATIEN 2 2 ROSELINE ROSELINE T VISIT 15 MINUTES OFFICE 12138 ANA[facility]TH AR[place] OUTPATIEN 2 2 ROSELINE ROSELINE T VISIT 15 MINUTES OFFICE 12534 ANA[facility]TH ARNETTE OUTPATIEN 2 2 ROSELINE ROSELINE T VISIT 5 MINUTES OFFICE 50352 ANA[facility]TH ARNETTE OUTPATIEN 2 2 ROSELINE ROSELINE T VISIT 15 MINUTES OFFICE 60099 ANANTH ARNETTE OUTPATIEN 2 2 ROSELINE ROSELINE T VISIT 15 MINUTES OFFICE 03290 ANA[facility]TH ARNETTE OUTPATIEN 2 2 ROSELINE ROSELINE T VISIT 15 MINUTES HOSPITAL YARELY - 2 2 [facility] OUTPATIEN INC T OFFICE 94745 ANANTH ARNETTE OUTPATIEN 2 2 ROSELINE ROSELINE T VISIT 15 MINUTES OFFICE 90311 ANANTH AR[place]TE OUTPATIEN 2 2 ROSELINE ROSELINE T VISIT 15 MINUTES HOSPITAL YARELY - 2 2 [facility] OUTPATIEN INC T OFFICE 37000 [facility] OUTPATI[facility] 2 2 HEALTH T [facility] 45 CLINIC OF MINUTES [place] OFFICE 27334 YARELY PRITC[facility]TT OUTPATIEN 2 2 [facility] VISIT C[facility] CENTER 15 MINUTES
--- OUTSIDE RECORDS SUMMARY | 2017-09-12 16:17 | External Medical Summary Rpt | CCD ---
Author Author , ELIZABETH Organization ELIZABETH Address Unknown Phone [email or web address] Care Team Providers Care Immigration Law Specialist Name Role Phone A Gen MUNOZ MD PSC, A Unavailable Unavailable Gen MUNOZ MD PSC Kanu Singh MD, Unavailable Unavailable Kanu Singh MD CASE JUS, CASE JUS Unavailable Unavailable [place]TH ROSELINE, WADSWORTH Unavailable Unavailable ROSELINE WAD[place]TH ROSELINE, WADSWORTH Unavailable Unavailable ROSELINE [facility] [place]available [place], [facility] Unavailable Unavailable [facility] DENAE DALAL Unavailable Unavailable [facility] Unavailable Unavailable [facility] HARPEL ROBINA, HARPEL Unavailable Unavailable ROBINA [facility] Unavailable Unavailable CENTER, [facility] Un[facility], [facility], Unavailable Unavailable [facility] Un[facility], [facility], [facility] Unavailable Unavailable HOLDINGS, [facility], Unavailable Unavailable [facility], Unavailable Unavailable AD[facility], [facility] Unavailable LAB, [facility]Y LAB CISCO STEWART, CISCO Unavailable Unavailable [facility] Unavailable Unavailable OF [place], [facility] Purpose Continuity of Care Document - 12-18-2011 through 2016 Problems Code Diagnosis DOS Provider Status [id number] CUTANEOUS 05-30-2017 [facility]DI BURGOS [facility] PHYSICIANS, RIGHT [...] SERV OTH PART FOUNDATION MUSCULOSKEL ETAL SYS [id number] LAC W/O FB 04-20-2017 [facility] INDEX SERV FINGER W/O FOUNDATION DAMAGE NAIL INIT I731 THROMBOANGI 04-13-2017 A Gen MUNOZ ITIS PSC OBLITERANS [id number] UNSPECIFIED 04-13-2017 A Gen MUNOZ OPEN WOUND PSC RT UPPER ARM INITIAL ENC [id number] UNS OPEN 04-13-2017 A Gen MUNOZ WND LT INDX PSC FINGER W/O DAMAGE NAIL SUB I998 OTHER 03-30-2017 [facility] DISORDER OF PHYSICIANS GROUP CIRCULATORY SYSTEM N028 RECUR & 03-30-2017 [facility] PERSIST PHYSICIANS HEMATURIA GROUP OT MORPHOLOG CHANGES Z720 TOBACCO USE 03-30-2017 [facility] Z3009 ENCOUNTER 03-29-2017 [facility] OT GENERAL PHYSICIANS GROUP 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 ICE CONTRACEPT I739 PERIPHERAL 03-05-2017 [facility] UNSPECIFIED R230 CYANOSIS 03-05-2017 [facility] I493 VENTRICULAR 03-02-2017 [facility] PREMATURE PHYSICIANS DEPOLARIZAT GROUP ION I749 EMBOLISM 03-02-2017 [facility] AND PH[facility]IANS THROMBOSIS GROUP OF UNSPECIFIED ARTERY V98968 PAIN IN 01-25-2017 [facility] F28103 PAIN IN 01-25-2017 [facility] L48532 PAIN IN 01-25-2017 [facility] Z681 BODY MASS 01-18-2017 A Gen MUNOZ INDEX 19.9 PSC OR LESS ADULT L22043 PAIN IN 12-15-2016 [facility] W22571 PAIN IN 12-15-2016 [facility] R110 NAUSEA 12-14-2016 A Gen MUNOZ MD PSC P63116 UNSPECIFIED 06-23-2016 Carmen MUNOZ MD PSC EPISCLERITI [...] PSC WITHOUT HEPATIC COMA E860 DEHYDRATION 09-23-2015 [facility] K5900 CONSTIPATIO 09-23-2015 [facility] UNSPECIFIED INC R1110 VOMITING 09-23-2015 [facility] UNSPECIFIED [facility] INC R17 UNSPECIFIED 09-23-2015 A Gen MUNOZ JAUNDICE PSC Z3049 ENCOUNTER 08-20-2015 [facility] FOR PH[facility]IANS SURVEILLANC GROUP E OTHER CONTRACEPTI VES Z308 ENCOUNTER 08-20-2015 [facility] FOR OTHER PHYSICIANS CONTRACEPTI GROUP VE MANAGEMENT R768 OTH SPEC 08-02-2015 [facility] ABNORMAL OLOGY AND IMMUNOLOGIC HEPATOL AL FIND IN SERUM 305.1 305.1 08-24-2013 [facility] TOBACCO USE [facility] 787.91 787.91 08-24-2013 [facility] DIARRHEA [facility] V255 INSERTION 09-07-2012 [facility] ROSE[facility] OF IMPLANTABLE SUBDERMAL CONTRACEPTI VE 650 NORMAL 08-08-2012 [facility] 00947 OTH&UNS CRD 08-08-2012 [facility]NTANGL [facility] W/O COMPRS INC COMP L&D DELIV 00046 FIRST-DEGRE 08-08-2012 [facility] E PERINEAL [facility] LACERATION INC WITH DELIVERY V270 OUTCOME OF 08-08-2012 [place] DELIVERY [facility] SINGLE INC LIVEBORN 20868 THREATENED 08-07-2012 [facility] PREMATURE [facility] LABOR INC ANTEPARTUM 79312 OTHER 08-07-2012 HARPEL ROBINA THREATENED LABOR, ANTEPARTUM 05438 CONDYLOMA 08-02-2012 [facility] ACUMINATUM [facility] INC 02776 POOR 08-02-2012 [facility] [place] GROWTH MGMT MOTH ANTPRTM COND/COMP V222 08-02-2012 [facility] INCIDENTAL INC V220 SUPERVISION 07-26-2012 ANANTH ROSELINE OF NORMAL FIRST 18092 ABN MAT 05-13-2012 A[facility] RO[facility] GLUCOSE TOLERANCE COMPL PG CB/PP UNS EOC 7910 PROTEINURIA 05-10-2012 A[facility] RO[facility] V283 ENCOUNTER 03-31-2012 ANA[facility] ROSE[facility] ROUTINE SCREEN MALFORMATIO N ULTRASONIC 74614 EDEMA OR 04-11-2012 [facility] EXCESSIVE [facility] WEIGHT GAIN INC ANTEPARTUM 24982 OTHER 12-31-2011 [facility] [...] 5 35 AR CE MA TA CY PR NO PH EN 5- 32 5 XA [...] ti 4 ve MG /2 ML AL NH 00 11 0 No OM 64 -1 [...] Bacteria XXX Anaerobe+Aerobe Cult (04-20-2017 10:06) Bacteri [id number] complet a XXX 017 06 No ed [...] Procedure DOS Code Location Performer Comment COMPREHEN 89949 [facility] SIVE 5 [facility] METABOLIC INC INC PANEL URINLS 32666 A C DENAE DIP 5 ALEXANDER HARO STICK/TAB PSC [place] [address] [facility] LIPASE 5 [facility] INC INC BLOOD 99944 A C PHILIPPE COUNT 5 ALEXANDER HARO COMPLETE PSC AUTO&[place] [address] [facility] INFUSION 5 [facility] THERAPY/P INC INC ROPHYLAXI S /DX 1ST TO 1 HR THERAPEUT 50972 [facility] IC 5 [facility] INJECTION INC INC IV PUSH EACH NEW DRUG INJECTION J2405 [facility] PR[facility]TT 5 [facility] ONDANSETR INC INC ON HCL PER 1 MG INSJ 32871 [facility] ANANTH NON-BIODE 5 PHYSICIAN ROSELINE GRADABLE S GROUP DRUG DELIVERY IMPLANT INSJ 49777 ANANTH ARNETTE NON-BIODE 2 ROSELINE ROSELINE GRADABLE DRUG DELIVERY IMPLANT ETONOGEST J7307 A[facility] [place] REL 2 ROSELINE ROSELINE CNTRACPT IMPL SYS INCL IMPL & SPL URINE 02969 A[facility] [place] 2 ROSELINE ROSELINE TEST VISUAL COLOR CMPRSN METHS REPAIR OF 7569 AYRELY [facility] OTHER 2 [facility] CURRENT INC INC OBSTETRIC LACERATIO N NEURAXIAL 70580 [facility] LABOR 2 ANESTH TERRY ANALG/ANE OF THE S PLND BLUE VAGINAL DELIVERY VAGINAL 72817 ANANTH [place] DELIVERY 2 ROSELINE ROSELINE ONLY W/POSTPAR CATHERINE CARE 09069 YARELY Y[facility]ELY NONSTRESS 2 [facility] TEST INC INC 70011 YARELY YARELY NONSTRESS 2 [facility] TEST INC INC US PREG 92637 ANANTH [place] UTERUS 2 ROSELINE ROSELINE REAL TIME F/U TRNSABDL PER FETUS 51687 [place] BIOPHYSIC 2 ROSELINE ROSELINE AL PROFILE W/O NON-STRES S TESTING DOPPLER 72878 [place] VELOCIMET 2 ROSELINE ROSELINE RY UMBILICAL ARTERY CUL BACT 48154 COMBINED COMBINED XCPT 2 PHYSICIAN PHYSICIAN URINE S LA S LA BLOOD/STO OL AEROBIC ISOL 30897 [place]AD[place] BIOPHYSIC 2 ROSELINE ROSELINE AL PROFILE W/O NON-STRES S TESTING DOPPLER 72137 [place] WAD[place] VELOCIMET 2 ROSELINE ROSELINE RY UMBILICAL ARTERY US PREG 41167 [place] WAD[place] UTERUS 2 ROSELINE ROSELINE REAL TIME F/U TRNSABDL PER FETUS 64451 [place] BIOPHYSIC 2 ROSELINE ROSELINE AL PROFILE W/O NON-STRES S TESTING DOPPLER 84480 [place] WAD[place] VELOCIMET 2 ROSELINE ROSELINE RY UMBILICAL ARTERY US PREG 60075 W[place] WADSW[place]TH UTERUS 2 ROSELINE ROSELINE REAL TIME F/U TRNSABDL PER FETUS GLUCOSE 39772 W[place] WADSW[place]TH TOLERANCE 2 ROSELINE ROSELINE TEST GTT 3 SPECIMENS US PREG 79098 ANANTH [place] UTERUS 2 ROSELINE ROSELINE AFTER 1ST TRIMEST GESTATION GONADOTRO 37207 Y[facility]ELY PR[facility] PIN 2 [facility] CHORIONIC INC INC QUANTITAT RONNIE ALPHA-FET 76936 [facility] OPROTEIN 2 [facility] [place] [place] [address] Y[facility] ESTRIOL 2 [facility] INC INC MEDICAL 66298 Y[facility] NUTRITION 2 [facility] INC INC ASSMT&IVN TJ INDIV EACH 15 [place] US PREG 39721 [facility] UTERUS 2 HEALTH ROSELINE REAL TIME CLINIC OF W/IMAGE [place] DCMTN TRANSVAG IADNA 25824 PATHOLOGY SYED CHLAMYDIA 2 & NANDINI CYTOLOGY TRACHOMAT LAB IS AMPLIFIED PROBE TQ IADNA 49139 PATHOLOGY SYED NEISSERIA 2 & NANDINI CYTOLOGY GONORRHOE LAB AE AMPLIFIED PROBE TQ CYTP 20644 PATHOLOGY SYED CERVICAL/ 2 & NANDINI VAGINAL CYTOLOGY REQ LAB INTERP PHYSICIAN CYTP C/V 74600 PATHOLOGY SYED AUTO THIN 2 & NANDINI LYR CYTOLOGY PREPJ SCR LAB MNL RESCR PHYS URINE 23864 [facility] CENTER VISUAL COLOR CMPRSN METHS Encounters Encounter Start End Date Code Location Performer Type Date EMERGENCY 42782 YARELY 5 5 [facility] DEPARTMEN INC T VISIT LOW/MODER SEVERITY OFFICE 35634 Carmen PHILIPPE OUTPATINICHELLE 5 5 ALEXANDER HARO T VISIT PSC 15 MINUTES HOSPITAL YARELY - 5 5 [facility] OUTPATIEN INC T OFFICE 87378 GASTROENT CASE JUS OUTJOAQUIN 5 5 EROLOGY T VISIT AND 25 HEPATOL MINUTES Emergency RICK Singh MD (ER) 3 15:34 3 16:00 [facility] Emergency RICK Singh MD (ER) 3 13:02 3 14:42 [facility] - 2 2 [facility] INPATIENT [facility] YARELY - 2 2 [facility] OUTPATIEN INC HOSPITAL Y[facility]ELY - 2 2 [facility] OUTPATIEN INC T OFFICE 00943 ANANTH ARNETTE OUTPATIEN 2 2 ROSELINE ROSELINE T VISIT 15 MINUTES OFFICE 68887 ANANTH ARNETTE OUTPATIEN 2 2 ROSELINE ROSELINE T VISIT 15 MINUTES OFFICE 52603 ANANTH ARNETTE OUTPATIEN 2 2 ROSELINE ROSELINE T VISIT 15 MINUTES OFFICE 07667 ANANTH ARNETTE OUTPATIEN 2 2 ORSELINE ROSELINE T VISIT 15 MINUTES OFFICE 11887 ANA[facility]TH ARNETTE OUTPATIEN 2 2 ROSELINE ROSELINE T VISIT 5 MINUTES OFFICE 62346 A[facility]TH ARNETTE OUTPATIEN 2 2 ROSELINE ROSELINE T VISIT 15 MINUTES OFFICE 63812 ANANTH ARNETTE OUTPATIEN 2 2 ROSELINE ROSELINE T VISIT 15 MINUTES OFFICE 67954 ANANTH ARNETTE OUTPATIEN 2 2 ROSELINE ROSELINE T VISIT 15 MINUTES HOSPITAL YARELY - 2 2 [facility] OUTPATIEN INC T OFFICE 99623 ANANTH ARNETTE OUTPATIEN 2 2 ROSELINE ROSELINE T VISIT 15 MINUTES OFFICE 88490 ANANTH ARNETTE OUTPATIEN 2 2 ROSELINE ROSELINE T VISIT 15 MINUTES HOSPITAL Y[facility]ELY - 2 2 [facility] OUTPATIEN INC T OFFICE 59052 [facility] OUTPATI[facility] 2 2 HEALTH T NEW 45 CLINIC OF MINUTES [place] OFFICE 59455 Y[facility]ELY PRITC[facility] OUTPATIEN 2 2 [facility] T VISIT CENTER CENTER 15 MINUTES
--- OUTSIDE RECORDS SUMMARY | 2017-09-12 16:19 | External Medical Summary Rpt | CCD ---
Demographics Preferred Language Cymraes Marital Status Unknown Faith Affiliation Unknown Race Unknown Ethnic Group Unknown Author Author , NELLY JOHNSON Address Unknown Phone Immunization No patient found.
--- OUTSIDE RECORDS SUMMARY | 2017-09-12 16:19 | External Medical Summary Rpt | CCD ---
Demographics Preferred Language Colombian Marital Status Unknown Judaism Affiliation Unknown Race Unknown Ethnic Group Unknown Author Author , NELLY JOHNSON Address Unknown Phone Immunization No patient found.
--- OUTSIDE RECORDS SUMMARY | 2017-09-12 16:19 | External Medical Summary Rpt | CCD ---
Author Author , ELIZABETH Rust ELIZABETH Address Unknown Phone [email or web address] Care Team Providers Care Crossband Layer Name Role Phone A Gen MUNOZ MD PSC, Carmen Unavailable Unavailable Gen MUNOZ MD PSC CASE JUS, CASE JUS Unavailable Unavailable WAD[place]TH ROSELINE, WADSWORTH Unavailable Unavailable ROSELINE ANANTH DUKES, WADSWORTH Unavailable Unavailable ROSELINE [facility] Un[place]available [place], [facility] [place] [facility] Unavailable Unavailable THE SISTERS, [facility]AL Unavailable Unavailable [facility] Unavailable Unavailable [facility] HARPEL ROBINA, HARPEL Unavailable Unavailable [facility] Unavailable Unavailable CENTER, [facility] Unavailable Unavailable INC, [facility], Unavailable Unavailable [facility] Unavailable Unavailable [facility], [facility] Un[facility], [facility] Unavailable Unavailable HOLDINGS, [facility], Unavailable Unavailable [facility], Unavailable Unavailable [facility] Unavailable Unavailable LAB, [facility]Y & CYTOLOGY LAB [facility]CO RUBIN Unavailable Unavailable [facility] Unavailable Unavailable OF [place], [facility] [place] Purpose Continuity of Care Document - 12-18-2011 through 2016 Problems Code Diagnosis DOS Provider Status [id number] CUTANEOUS 05-30-2017 [facility] ABSCESS OF PHYSICIANS, RIGHT LOWER PLLC LIMB M7989 OTHER 04-20-2017 [place] [facility] SPECIFIED SERV SOFT TISSUE FOUNDATION DISORDERS R937 ABN FIND ON 04-20-2017 [place] [facility] DX IMAG SERV OTH PART FOUNDATION MUSCULOSKEL ETAL SYS [id number] LAC W/O FB 04-20-2017 [place] [facility] LT INDEX SERV FINGER W/O FOUNDATION DAMAGE NAIL INIT I731 THROMBOANGI 04-13-2017 Carmen ARRIAGA MD PSC OBLITERANS [id number] UNSPECIFIED 04-13-2017 Carmen MUNOZ OPEN WOUND PSC RT UPPER ARM INITIAL ENC [id number] UNS OPEN 04-13-2017 Carmen MUNOZ WND LT INDX PSC FINGER W/O DAMAGE NAIL SUB I998 OTHER 03-30-2017 [facility] DISORDER OF PHYSICIANS GROUP CIRCULATORY SYSTEM N028 RECUR & 03-30-2017 [facility] PERSIST PHYSICIANS HEMATURIA GROUP OTH MORPHOLOG CHANGES Z720 TOBACCO USE 03-30-2017 [facility] GROUP Z3009 ENCOUNTER 03-29-2017 [facility] 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 I739 PERIPHERAL 03-05-2017 [place] [facility] UNSPECIFIED R230 CYANOSIS 03-05-2017 [facility] I493 VENTRICULAR 03-02-2017 [facility] PREMATURE PHYSICIANS DEPOLARIZAT GROUP ION I749 EMBOLISM 03-02-2017 [facility] AND PHYSICIANS THROMBOSIS GROUP OF UNSPECIFIED ARTERY S35330 PAIN IN 01-25-2017 [place] [facility] Y46452 PAIN IN 01-25-2017 [place] [facility] W54711 PAIN IN 01-25-2017 [place] [facility] Z681 BODY MASS 01-18-2017 A Gen MUNOZ INDEX 19.9 PSC OR LESS ADULT X41888 PAIN IN 12-15-2016 [place] [facility] P06855 PAIN IN 12-15-2016 [place] [facility] R110 NAUSEA 12-14-2016 A Gen MUNOZ MD PSC [id number] UNSPECIFIED 06-23-2016 A Gen MUNOZ MD PSC [...] Gen MUNOZ JAUNDICE PSC Z3049 ENCOUNTER 08-20-2015 [facility] FOR PHYSICIANS SURVEILLANC GROUP E OTHER CONTRACEPTI VES Z308 ENCOUNTER 08-20-2015 [facility] FOR OTHER PHYSICIANS CONTRACEPTI GROUP VE MANAGEMENT R768 OTH SPEC 08-02-2015 GASTROENTER ABNORMAL OLOGY AND IMMUNOLOGIC HEPATOL AL FIND IN SERUM V255 INSERTION 09-07-2012 ANANTH DUKES OF IMPLANTABLE SUBDERMAL CONTRACEPTI VE 650 NORMAL 08-08-2012 COMMUNITY DELIVERY ANESTH OF THE BLUE 03866 OTH&UNS CRD 08-08-2012 [facility] ENTANGL [facility] W/O COMPRS INC COMP L&D DELIV 17396 FIRST-DEGRE 08-08-2012 [facility] E PERINEAL [facility] LACERATION INC WITH DELIVERY V270 OUTCOME OF 08-08-2012 [facility] DELIVERY [facility] SINGLE INC LIVEBORN 86786 THREATENED 08-07-2012 [facility] PREMATURE [facility] LABOR INC ANTEPARTUM 76121 OTHER 08-07-2012 HARPEL ROBINA THREATENED LABOR, ANTEPARTUM 92728 CONDYLOMA 08-02-2012 [facility] ACUMINATUM [facility] INC 31851 POOR 08-02-2012 ANANTH ROSELINE GROWTH MGMT MOTH ANTPRTM COND/COMP V222 08-02-2012 [facility] STATE, [facility] INCIDENTAL INC V220 SUPERVISION 07-26-2012 ANANTH ROSELINE OF NORMAL FIRST 57290 ABN MAT 05-13-2012 ANANTH ROSELINE GLUCOSE TOLERANCE COMPL PG CB/PP UNS EOC 7910 PROTEINURIA 05-10-2012 [place] ROSELINE V283 ENCOUNTER 03-31-2012 ANANTH DUKES ROUTINE SCREEN MALFORMATIO N ULTRASONIC 93801 EDEMA OR 01-13-2012 [facility] EXCESSIVE [facility] WEIGHT GAIN INC ANTEPARTUM 66739 OTHER 12-31-2011 [facility] SPECIFED [facility] COMPLICATIO CLINIC [...] 5 35 [address] CE MA TA CY [place] NO PH EN 5- 32 5 XA [...] Procedure DOS Code Location Performer Comment COMPREHEN 15772 [facility] PR[facility] SIVE 5 [facility] METABOLIC INC INC PANEL URINLS 96486 A C DENAE DIP 5 ALEXANDER HARO STICK/TAB PSC [place] [address] Y[facility]ELY PR[facility] LIPASE 5 [facility] INC INC BLOOD 62747 A C PHILIPPE COUNT 5 ALEXANDER HARO COMPLETE PSC AUTO&[place] [address] Y[facility]ELY PRITC[facility]TT INFUSION 5 [facility] THERAPY/P INC INC ROPHYLAXI S /DX 1ST TO 1 HR THERAPEUT 14959 Y[facility]ELY PRITCHETT IC 5 [facility] INJECTION INC INC IV PUSH EACH NEW DRUG INJECTION J2405 Y[facility]ELY PRITCHETT 5 [facility] ONDANSETR INC INC ON HCL PER 1 MG INSJ 07696 [facility] ANANTH NON-BIODE 5 PHYSICIAN ROSELINE GRADABLE S GROUP DRUG DELIVERY IMPLANT INSJ 48853 ANANTH [place] NON-BIODE 2 ROSELINE ROSELINE GRADABLE DRUG DELIVERY IMPLANT ETONOGEST J7307 ANANTH [place]AD[place] REL 2 ROSELINE ROSELINE CNTRACPT IMPL SYS INCL IMPL & SPL URINE 02546 ANANTH WAD[place] 2 ROSELINE ROSELINE TEST VISUAL COLOR CMPRSN METHS REPAIR OF 7569 YARELY PRITCHETT OTHER 2 [facility] CURRENT INC INC OBSTETRIC LACERATIO N NEURAXIAL 99832 [facility] LABOR 2 ANESTH TERRY ANALG/ANE OF THE S PLND BLUE VAGINAL DELIVERY VAGINAL 70780 ANANTH WAD[place]TH DELIVERY 2 ROSELINE ROSELINE ONLY W/POSTPAR CATHERINE CARE 94852 YARELY PRITCHETT NONSTRESS 2 [facility] TEST INC INC 74739 YARELY PRITCHETT NONSTRESS 2 [facility] TEST INC INC US PREG 17847 ANANTH [place] UTERUS 2 ROSELINE ROSELINE REAL TIME F/U TRNSABDL PER FETUS 03410 [place] [facility] BIOPHYSIC 2 ROSELINE ROSELINE AL PROFILE W/O NON-STRES S TESTING DOPPLER 79509 [place] WAD[place]TH VELOCIMET 2 ROSELINE ROSELINE RY UMBILICAL ARTERY CUL BACT 33361 COMBINED COMBINED XCPT 2 PHYSICIAN PHYSICIAN URINE S LA S LA BLOOD/STO OL AEROBIC ISOL 47051 [place] [facility]AD[place] BIOPHYSIC 2 ROSELINE ROSELINE AL PROFILE W/O NON-STRES S TESTING DOPPLER 89902 [place]AD[place] VELOCIMET 2 ROSELINE ROSELINE RY UMBILICAL ARTERY US PREG 47104 [place]AD[place] UTERUS 2 ROSELINE ROSELINE REAL TIME F/U TRNSABDL PER FETUS 85131 [place] BIOPHYSIC 2 ROSELINE ROSELINE AL PROFILE W/O NON-STRES S TESTING DOPPLER 86071 [place] VELOCIMET 2 ROSELINE ROSELINE RY UMBILICAL ARTERY US PREG 94844 [place]AD[place] UTERUS 2 ROSELINE ROSELIEN REAL TIME F/U TRNSABDL PER FETUS GLUCOSE 69235 [place] TOLERANCE 2 ROSELINE ROSELINE TEST GTT 3 SPECIMENS US PREG 43157 [place] UTERUS 2 ROSELINE ROSELINE AFTER TRIMEST GESTATION GONADOTRO 97120 YARELY PRITCHETT PIN 2 [facility] CHORIONIC INC INC QUANTITAT RONNIE ALPHA-FET 02900 YARELY PRITCHETT OPROTEIN 2 [facility] [place] [address] YARELY PRITCHETT ESTRIOL 2 [facility]OS[facility] INC INC MEDICAL 76620 YARELY PRITCHETT NUTRITION 2 [facility] INC INC ASSMT&IVN TJ INDIV EACH 15 [place] PREG 56303 [facility] UTERUS 2 HEALTH ROSELINE REAL TIME CLINIC OF W/IMAGE [place] DCMTN TRANSVAG IADNA 86905 PATHOLOGY SYED CHLAMYDIA 2 & NANDINI CYTOLOGY TRACHOMAT LAB IS AMPLIFIED PROBE TQ IADNA 33639 PATHOLOGY SYED NEISSERIA 2 & NANDINI CYTOLOGY GONORRHOE LAB AE AMPLIFIED PROBE TQ CYTP 88930 PATHOLOGY SYED CERVICAL/ 2 & NANDINI VAGINAL CYTOLOGY REQ LAB INTERP PHYSICIAN CYTP C/V 65728 PATHOLOGY SYED AUTO THIN 2 & NANDINI LYR CYTOLOGY PREPJ SCR LAB MNL RESCR PHYS URINE 17598 Y[facility]ELY PRTICHETT 2 [facility] CENTER VISUAL COLOR CMPRSN METHS Encounters Encounter Start End Date Code Location Performer Type Date EMERGENCY 50397 YARELY 5 5 [facility] DEPARTMEN [facility] T VISIT LOW/MODER SEVERITY OFFICE 19399 Carmen PHILIPPE OUTPATIEN 5 5 ALEXANDER HARO T VISIT PSC 15 MINUTES HOSPITAL YARELY - 5 5 [facility] OUTPATIEN [facility] T OFFICE 85765 GASTROENT CASE JUS OUTPATIEN 5 5 EROLOGY T VISIT AND 25 HEPATOL MINUTES HOSPITAL YARELY - 2 2 [facility] INPATIENT [facility] YARELY - 2 2 [facility] OUTPATIEN [facility] YARELY - 2 2 [facility] OUTPATIEN [facility] T OFFICE 23740 W[place] OUTPATIEN 2 2 ROSELINE ROSELINE T VISIT 15 MINUTES OFFICE 57835 [facility] OUTPATIEN 2 2 ROSELINE ROSELINE T VISIT 15 MINUTES OFFICE 37497 [facility] OUTPATIEN 2 2 ROSELINE ROSELINE T VISIT 15 MINUTES OFFICE 82840 [facility] OUTPATIEN 2 2 ROSELINE ROSELINE T VISIT 15 MINUTES OFFICE 28946 [facility] OUTPATIEN 2 2 ROSELINE ROSELINE T VISIT 5 MINUTES OFFICE 38505 [place] [facility] OUTPATIEN 2 2 ROSELINE ROSELINE T VISIT 15 MINUTES OFFICE 44847 [facility] OUTPATIEN 2 2 ROSELINE ROSELINE T VISIT 15 MINUTES HOSPITAL YARELY - 2 2 MEM H[facility] OUTPATIEN INC T OFFICE 99424 [facility] OUTPATIEN 2 2 ROSELINE ROSELINE T VISIT 15 MINUTES OFFICE 04654 ANANTH [place] OUTPATIEN 2 2 ROSELINE ROSELINE T VISIT 15 MINUTES OFFICE 14756 ANANTH [place] OUTPATIEN 2 2 ROSELINE ROSELINE T VISIT 15 MINUTES [facility] YARELY - 2 2 MEM HOS[facility] OUTPATIEN [facility] OFFICE 61296 WOMEN'S OUTPATIEN 2 2 [facility]ALTH T [facility] CLIN[facility] OF MINUTES [facility] OFFICE 77835 YARELY PRITCHETT OUTPATIEN 2 2 [facility] VISIT CENTER CENTER 15 MINUTES
--- OUTSIDE RECORDS SUMMARY | 2017-09-12 16:19 | External Medical Summary Rpt | CCD ---
Author Author , ELIZABETH Rust ELIZABETH Address Unknown Phone [email or web address] Care Team Providers Care Beauty Advisor Name Role Phone A Gen MUNOZ MD PSC, Carmen Unavailable Unavailable Gen MUNOZ MD PSC CASE JUS, CASE JUS Unavailable Unavailable WAD[place]TH ROSELINE, WADSWORTH Unavailable Unavailable ROSELINE ANANTH DUKES, WADSWORTH Unavailable Unavailable ROSELINE [facility]available Unavailable [place], [facility] [place] [facility] Unavailable Unavailable THE [place], [facility] Unavailable Unavailable [facility] Unavailable Unavailable [facility] HARPEL ROBINA, HARPEL Unavailable Unavailable [facility] Unavailable Unavailable CENTER, [facility] Unavailable Unavailable INC, [facility], Unavailable Unavailable [facility] Unavailable Unavailable [facility], [facility] Unavailable Unavailable [facility], [facility] THALIA CHATO Unavailable Unavailable HOLDINGS, [facility], Unavailable Unavailable [facility], Unavailable Unavailable [facility] Unavailable Unavailable LAB, PATHOLOGY & CYTOLOGY LAB [facility] RUBIN Unavailable Unavailable [facility] Unavailable Unavailable OF [place], [facility] [place] Purpose Continuity of Care Document - 12-18-2011 through 2016 Problems Code Diagnosis DOS Provider Status [id number] CUTANEOUS 05-30-2017 [facility] ABSCESS OF PHYSICIANS, RIGHT LOWER PLLC LIMB M7989 OTHER 04-20-2017 [place] [facility] SPECIFIED SERV SOFT TISSUE FOUNDATION DISORDERS R937 ABN FIND ON 04-20-2017 [place] [facility] DX IMAG SERV OTH PART FOUNDATION MUSCULOSKEL ETAL SYS [id number] LAC W/O FB 04-20-2017 [place] [facility] [place] INDEX SERV FINGER W/O FOUNDATION DAMAGE NAIL INIT I731 THROMBOANGI 04-13-2017 Carmen ARRIAGA MD PSC OBLITERANS [id number] UNSPECIFIED 04-13-2017 Carmen MUNOZ OPEN WOUND PSC RT UPPER ARM INITIAL ENC S23594S UNS OPEN 04-13-2017 Carmen MUNOZ WND LT INDX PSC FINGER W/O DAMAGE NAIL SUB I998 OTHER 03-30-2017 [facility] DISORDER OF PHYSICIANS GROUP CIRCULATORY SYSTEM N028 RECUR & 03-30-2017 [facility] PERSIST PHYSICIANS HEMATURIA GROUP OTH MORPHOLOG CHANGES Z720 TOBACCO USE 03-30-2017 [facility] PHYSICIANS GROUP Z3009 ENCOUNTER 03-29-2017 [facility] OT GENERAL PHYSICIANS GROUP CLAIM REVIEW MEDICAL DIRECTOR&ADV ICE CONTRACEPT I739 PERIPHERAL 03-05-2017 [facility] UNSPECIFIED R230 CYANOSIS 03-05-2017 [facility] I493 VENTRICULAR 03-02-2017 [facility] PREMATURE PHYSICIANS DEPOLARIZAT GROUP ION I749 EMBOLISM 03-02-2017 [facility] AND PHYSICIANS THROMBOSIS GROUP OF UNSPECIFIED ARTERY N80176 PAIN IN 01-25-2017 [facility] C01892 PAIN IN 01-25-2017 [facility] O05947 PAIN IN 01-25-2017 [facility] Z681 BODY MASS 01-18-2017 A Gen MUNOZ INDEX 19.9 PSC OR LESS ADULT X11125 PAIN IN 12-15-2016 [facility] O97428 PAIN IN 12-15-2016 [facility] R110 NAUSEA 12-14-2016 A Gen MUNZO MD PSC K07167 UNSPECIFIED 06-23-2016 A Gen MUNOZ MD PSC [...] Gen MUNOZ JAUNDICE PSC Z3049 ENCOUNTER 08-20-2015 [facility] FOR PHYSICIANS SURVEILLANC GROUP E OTHER CONTRACEPTI VES Z308 ENCOUNTER 08-20-2015 [facility] FOR OTHER PHYSICIANS CONTRACEPTI GROUP VE MANAGEMENT R768 OTH SPEC 08-02-2015 GASTROENTER ABNORMAL OLOGY AND IMMUNOLOGIC HEPATOL AL FIND IN SERUM V255 INSERTION 09-07-2012 ANANTH DUKES OF IMPLANTABLE SUBDERMAL CONTRACEPTI VE 650 NORMAL 08-08-2012 COMMUNITY DELIVERY ANESTH OF THE BLUE 32266 OTH&UNS CRD 08-08-2012 [facility] ENTANGL [facility] W/O COMPRS INC COMP L&D DELIV 05927 FIRST-DEGRE 08-08-2012 [facility] E PERINEAL [facility] LACERATION INC WITH DELIVERY V270 OUTCOME OF 08-08-2012 [facility] DELIVERY [facility] SINGLE INC LIVEBORN 88143 THREATENED 08-07-2012 [facility] PREMATURE [facility] LABOR INC ANTEPARTUM 39431 OTHER 08-07-2012 HARPEL ROBINA THREATENED LABOR, ANTEPARTUM 91439 CONDYLOMA 08-02-2012 [facility] ACUMINATUM [facility] INC 46935 POOR 08-02-2012 ANANTH ROSELINE GROWTH MGMT MOTH ANTPRTM COND/COMP V222 08-02-2012 YARELY STATE, MEM [facility] INCIDENTAL INC V220 SUPERVISION 07-26-2012 ANANTH ROSELINE OF NORMAL FIRST 80701 ABN MAT 05-13-2012 ANANTH ROSELINE GLUCOSE TOLERANCE COMPL PG CB/PP UNS EOC 7910 PROTEINURIA 05-10-2012 [place] ROSELINE V283 ENCOUNTER 03-31-2012 ANANTH DUKES ROUTINE SCREEN MALFORMATIO N ULTRASONIC 61130 EDEMA OR 01-13-2012 [facility] EXCESSIVE [facility] WEIGHT GAIN INC ANTEPARTUM 03561 OTHER 12-31-2011 [facility]S SPECIFED HEALTH COMPLICATIO CLINIC [...] 5 35 [address] MA TA CY [place] NO PH EN 5- 32 5 XA [...] Procedure DOS Code Location Performer Comment COMPREHEN 32009 Y[facility]ELY PRITC[facility]TT SIVE 5 [facility] METABOLIC INC INC PANEL URINLS 53847 A C DENAE DIP 5 ALEXANDER HARO STICK/TAB PSC [place] [address] YARELY PRITCHETT LIPASE 5 [facility] INC INC BLOOD 29676 A C PHILIPPE COUNT 5 ALEXANDER HARO COMPLETE PSC AUTO&[place] [address] YARELY PRITCHETT INFUSION [address] [facility] THERAPY/P INC INC ROPHYLAXI S /DX 1ST TO 1 HR THERAPEUT 19084 YARELY PRITCHETT IC 5 [facility] INJECTION INC INC IV PUSH EACH NEW DRUG INJECTION J2405 YARELY PRITCHETT 5 [facility] H[facility] ONDANSETR INC INC ON HCL PER 1 MG INSJ 33062 [facility] ANANTH NON-BIODE 5 PHYSICIAN ROSELINE GRADABLE S GROUP DRUG DELIVERY IMPLANT INSJ 82585 ANANTH [place] NON-BIODE 2 ROSELINE ROSELINE GRADABLE DRUG DELIVERY IMPLANT ETONOGEST J7307 ANANTH [place] REL 2 ROSELINE ROSELINE CNTRACPT IMPL SYS INCL IMPL & SPL URINE 18016 ANANTH [place]AD[place] 2 ROSELINE ROSELINE TEST VISUAL COLOR CMPRSN METHS REPAIR OF 7569 YARELY PRITCHETT OTHER 2 [facility] H[facility] CURRENT INC INC OBSTETRIC LACERATIO N NEURAXIAL 58369 [facility] LABOR 2 ANESTH TERRY ANALG/ANE OF THE S PLND BLUE VAGINAL DELIVERY VAGINAL 03482 ANANTH [place] DELIVERY 2 ROSELINE ROSELINE ONLY W/POSTPAR CATHERINE CARE 27299 YARELY PRITC[facility]TT NONSTRESS 2 [facility] TEST INC INC 70646 YARELY PRITC[facility] NONSTRESS 2 [facility] TEST INC [place] PREG 82096 ANANTH [place] UTERUS 2 ROSELINE ROSELINE REAL TIME F/U TRNSABDL PER FETUS 50406 [place] [facility] BIOPHYSIC 2 ROSELINE ROSELINE AL PROFILE W/O NON-STRES S TESTING DOPPLER 12139 [place] [facility] VELOCIMET 2 ROSELINE ROSELINE RY UMBILICAL ARTERY CUL BACT 79180 COMBINED COMBINED XCPT 2 PHYSICIAN PHYSICIAN URINE S LA S LA BLOOD/STO OL AEROBIC ISOL 30441 [place] [facility] BIOPHYSIC 2 ROSELINE ROSELINE AL PROFILE W/O NON-STRES S TESTING DOPPLER 28630 [place] VELOCIMET 2 ROSELINE ROSELINE RY UMBILICAL ARTERY US PREG 39863 [place] UTERUS 2 ROSELINE ROSELINE REAL TIME F/U TRNSABDL PER FETUS 07284 [place] BIOPHYSIC 2 ROSELINE ROSELINE AL PROFILE W/O NON-STRES S TESTING DOPPLER 51820 [place] VELOCIMET 2 ROSELINE ROSELINE RY UMBILICAL ARTERY US PREG 35150 [place] UTERUS 2 ROSELINE ROSELINE REAL TIME F/U TRNSABDL PER FETUS GLUCOSE 51012 [place] TOLERANCE 2 ROSELINE ROSELINE TEST GTT 3 SPECIMENS US PREG 64432 [facility] UTERUS 2 ROSELINE ROSELINE AFTER TRIMEST GESTATION GONADOTRO 73242 YARELY PRITCHETT PIN 2 [facility] CHORIONIC INC INC QUANTITAT RONNIE ALPHA-FET 21216 YARELY PRITCHETT OPROTEIN 2 [facility] [place] [address] YARELY PRITCHETT ESTRIOL 2 [facility] INC INC MEDICAL 58215 YARELY PRITCHETT NUTRITION 2 [facility] INC INC ASSMT&IVN TJ INDIV EACH 15 [place] PREG 58494 [facility] UTERUS 2 HEALTH ROSELINE REAL TIME CLINIC OF W/IMAGE [place] DCMTN TRANSVAG IADNA 06215 PATHOLOGY SYED CHLAMYDIA 2 & NANDINI CYTOLOGY TRACHOMAT LAB IS AMPLIFIED PROBE TQ IADNA 63291 PATHOLOGY SYED NEISSERIA 2 & NANDINI CYTOLOGY GONORRHOE LAB AE AMPLIFIED PROBE TQ CYTP 45641 PATHOLOGY SYED CERVICAL/ 2 & NANDINI VAGINAL CYTOLOGY REQ LAB INTERP PHYSICIAN CYTP C/V 39980 PATHOLOGY SYED AUTO THIN 2 & NANDINI LYR CYTOLOGY PREPJ SCR LAB MNL RESCR PHYS URINE 79195 Y[facility]ELY PRITCHETT 2 [facility] CENTER VISUAL COLOR CMPRSN METHS Encounters Encounter Start End Date Code Location Performer Type Date EMERGENCY 28872 YARELY 5 5 MEM [facility] DEPARTMEN [facility] T VISIT LOW/MODER SEVERITY OFFICE 02365 Carmen PHILIPPE OUTPATIEN 5 5 ALEXANDER HARO T VISIT PSC 15 MINUTES HOSPITAL YARELY - 5 5 [facility] OUTPATIEN [facility] T OFFICE 68653 GASTROENT CASE JUS OUTPATIEN 5 5 EROLOGY T VISIT AND 25 HEPATOL MINUTES HOSPITAL YARELY - 2 2 [facility] INPATIENT [facility] YARELY - 2 2 [facility] YARELY - 2 2 [facility]IEN [facility] T OFFICE 19402 W[facility] OUTPATIEN 2 2 ROSELINE ROSELINE T VISIT 15 MINUTES OFFICE 56874 [facility] OUTPATIEN 2 2 ROSELINE ROSELINE T VISIT 15 MINUTES OFFICE 74504 [facility] OUTPATIEN 2 2 ROSELINE ROSELINE T VISIT 15 MINUTES OFFICE 60629 [facility] OUTPATIEN 2 2 ROSELINE ROSELINE T VISIT 15 MINUTES OFFICE 58028 [facility] OUTPATIEN 2 2 ROSELINE ROSELINE T VISIT 5 MINUTES OFFICE 78335 [facility] [facility] OUTPATIEN 2 2 ROSELINE ROSELINE T VISIT 15 MINUTES OFFICE 92778 [facility] OUTPATIEN 2 2 ROSELINE ROSELINE T VISIT 15 MINUTES HOSPITAL YARELY - 2 2 [facility] OUTPATIEN INC T OFFICE 03024 [place] [facility] OUTPATIEN 2 2 ROSELINE ROSELINE T VISIT 15 MINUTES OFFICE 62166 ANANTH [place] OUTPATIEN 2 2 ROSELINE ROSELINE T VISIT 15 MINUTES OFFICE 92928 [facility] 2 2 ROSELINE ROSELINE T [facility]ISIT 15 MINUTES [facility] - 2 2 [facility] OFFICE [id number] [facility] 2 2 [facility] T [facility] MINUT[facility] 01652 [facility] 2 2 [facility] 15 MINUTES
[2017-09-12 17:13] VITALS: BP 115/69
== END 2017-09-12 17:13 | disposition home or self-care (01) ==
LOC: ER 16:03
DX: I82.621 Acute embolism and thrombosis of deep veins of right upper extremity (principal); Z72.0 Tobacco use